=== PATIENT | female | born 1945 | race Caucasian/White ===

== ENCOUNTER 2024-12-16 09:18 | Inpatient (IN) ==
--- NOTE | 2024-12-16 09:49 | Emergency Department Note ---
ED Provider Note History of Present Illness Chief Complaint: Vomiting Stated Complaint: VOMITING Time Seen by Provider: 12/16/24 09:30 79-year-old female who presents to the emergency department with her (who also provides history) for evaluation of nausea, vomiting and inability to tolerate any food or drinks for the past 2 days. The patient reports that she felt well earlier on Thursday, and was playing with her granddaughter. By that afternoon is when symptoms developed. She did feel little bit better yesterday, but still did not have relief of symptoms. The patient denies any prior GI history, or history of abdominal surgeries. She has checked her temperature at home and has remained afebrile. She rates her discomfort a 10 out of 10. Home Medications Medication Instructions Recorded Confirmed Type levothyroxine 88 mcg tablet 88 mcg PO DAILY 12/16/24 12/16/24 History (Synthroid) simvastatin 20 mg tablet 20 mg PO DAILY 12/16/24 12/16/24 History Allergies Allergy/AdvReac Type Severity Reaction Status Date / Time No Known Allergies Allergy Unverified 08/11/17 09:36 Past Med/Surg History Problem List (Updated 12/16/24 @ 15:10 by Swapnil Hung) Acute hypokalemia (Acute) Abdominal wall hernia (Acute) Hypokalemia Dyslipidemia Hypothyroidism Gastric out let obstruction (Acute) Medical History Fecal impaction Status post right knee 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 Breast cancer (04/04/14) "Abnormal right breast mammogram Status post right breast needle localization excisional biopsy 04/04/2014 Estrogen receptor positive, progesterone receptor positive, HER-2/kobi negative Status post sentinel lymph node biopsy 05/02/2014 Stage [id number] Oncotype DX score of 19 Status post completion of radiation therapy utilizing accelerated partial breast treatment completed 07/07/2014 received 3850 cGy" Surgical History History of right knee joint replacement Social History Smoking Status: Current every day smoker Tobacco Type: Cigarettes marital status: current occupational status: retired Feels Safe at Home: Yes Physical Exam Vital Signs Vital Signs - 24 hr 12/16/24 09:25 12/16/24 09:38 12/16/24 10:09 Temperature 36.7 C Temperature Source Oral Pulse Rate 78 69 Respiratory Rate 20 17 Respiratory Effort / Characteristics Non-Labored Spontaneous Respiratory Depth Normal Blood Pressure 150/78 H 146/78 H Blood Pressure Mean 102 100 Pulse Oximetry 95 93 99 Oxygen Delivery Method Room Air Room Air Oxygen Flow Rate Sepsis Recent Fever Within 48 Hours No Sepsis New/Unexplained Change in Mental Status N/A Sepsis Action Taken by Nursing No Action Required Oxygen Flow Rate - Titration Pulse Oximetry Post Tiitration 12/16/24 10:15 12/16/24 10:17 12/16/24 10:30 Temperature Temperature Source Pulse Rate 70 Respiratory Rate Respiratory Effort / Characteristics Respiratory Depth Blood Pressure 157/83 H Blood Pressure Mean 112 Pulse Oximetry 85 L Oxygen Delivery Method Room Air Nasal Cannula Oxygen Flow Rate 0 Sepsis Recent Fever Within 48 Hours Sepsis New/Unexplained Change in Mental Status Sepsis Action Taken by Nursing Oxygen Flow Rate - Titration 3 Pulse Oximetry Post Tiitration 96 12/16/24 11:39 12/16/24 12:01 Temperature Temperature Source Pulse Rate 64 75 Respiratory Rate 14 17 Respiratory Effort / Characteristics Respiratory Depth Blood Pressure 111/85 124/87 Blood Pressure Mean 93 97 Pulse Oximetry 96 96 Oxygen Delivery Method Oxygen Flow Rate Sepsis Recent Fever Within 48 Hours Sepsis New/Unexplained Change in Mental Status Sepsis Action Taken by Nursing Oxygen Flow Rate - Titration Pulse Oximetry Post Tiitration CONSTITUTIONAL: Healthy and well nourished. Patient appears in moderate distress. HEENT: Mucous membranes are dry. No scleral icterus or conjunctival injection/pallor. RESPIRATORY: Clear to auscultation bilaterally with no wheezing, crackles, rhonchi or stridor. CARDIOVASCULAR: Regular rate and rhythm with no murmurs, rubs or gallops. GASTROINTESTINAL: Bowel sounds silent in all quadrants. Abdomen is protuberant and generally tender to palpation without any focal findings. Negative CVA tenderness. MUSCULOSKELETAL: Full range of motion of all joints without discomfort. INTEGUMENTARY: No rash or other significant dermatologic conditions noted. HEMATOLOGIC: No ecchymosis or petechiae. PSYCHIATRIC: Flat affect. NEUROLOGIC: No focal neurologic deficits noted. Course Course Patient history and physical exam were performed. Nursing notes were reviewed. Vital signs were reviewed. IV access was established, and labs were ordered and drawn. The patient was hydrated with a liter normal saline, and administered IV Zofran, Tylenol and a small dose of IV morphine. An ECG was performed, showing a right bundle branch block without any obvious ST elevations. Patient does have inverted T waves in anterior leads when compared to prior ECG dated 06/27/2015. The patient was placed on air sampling and monitoring while in the emergency department. Portable chest x-ray was normal, and did not show any subdiaphragmatic air. Review of labs showed relatively normal CBC. The patient is hypokalemic with a potassium of 3.1. Fattening is normal, with an anion gap of 13. Glucose is also elevated at 144, with a calcium of 10.5. LFTs are normal. Lipase is mildly elevated as well. Troponin is normal, as is a lactate level. CT with IV contrast of the abdomen and pelvis shows a large supraumbilical midline hernia containing parts of the stomach and transverse colon. The hernia appears to be causing gastric outlet obstruction, as concurred by the radiologist. Findings were discussed with the patient. I then discussed the case further with general surgery, who recommended NG tube placement, application of ice to the abdominal wall, and hospitalist consultation. They indicated that they would evaluate the patient as well. The case was then further discussed with the [facility] hospitalist service, who agreed to admission. Please see hospitalist and surgical dictations for further treatment and final disposition. The patient did report adequate pain control while under my care. The patient did have a brief episode of hypoxia after administering her IV morphine, therefore was placed on O2 via nasal cannula. She maintained her O2 saturations throughout the remainder of her ED evaluation. The case was also discussed with Dr. Vergara, ED attending physician, who agrees with workup and admission planning. Administered Medications Discontinued Medications Benzocaine/Butamben/Tetracaine HCl (Benzocaine/Tetracain/Butam 50 Appln/5 Gm Can) Confirm Administered Dose 50 appln EXT .STK-MED ONE Stop: 12/16/24 13:12 Last Admin: 12/16/24 13:34 Dose: 2 appln Documented By: PRISCILLA Sodium Chloride (Nss) 1,000 mls @ 999 mls/hr IV .Q1H1M STA Stop: 12/16/24 10:38 Last Infusion: 12/16/24 14:33 Dose: Infused Documented By: Admin: 12/16/24 09:55 Dose: 999 mls/hr Documented By: PRISCILLA Acetaminophen (Ofirmev) 1,000 mg in 100 mls @ 400 mls/hr IV NOW STA Stop: 12/16/24 09:52 Last Infusion: 12/16/24 11:30 Dose: Infused Documented By: valente Admin: 12/16/24 10:01 Dose: 400 mls/hr Documented By: PRISCILLA Potassium Chloride (K Parvez / Wtr) 10 meq in 100 mls @ 100 mls/hr IV Q1H NEELA Stop: 12/16/24 16:44 Last Admin: 12/16/24 15:58 Dose: 100 mls/hr Documented By: Infusion: 12/16/24 14:34 Dose: Infused Documented By: Admin: 12/16/24 13:34 Dose: 100 mls/hr Documented By: PRISCILLA Pantoprazole Sodium (Protonix) 40 mg in 10 mls @ 5 mls/min IV NOW ONE Stop: 12/16/24 12:56 Last Admin: 12/16/24 13:33 Dose: 5 mls/min Documented By: PRISCILLA Ioversol (Optiray 320 100ml) 94 ml IV ONCE ONE Stop: 12/16/24 10:41 Last Admin: 12/16/24 10:40 Dose: 94 ml Documented By: KENNETH Morphine Sulfate (Morphine Sulfate 2 Mg/Ml Carp) 2 mg IV NOW STA Stop: 12/16/24 09:39 Last Admin: 12/16/24 09:55 Dose: 2 mg Documented By: PRISCILLA Morphine Sulfate (Morphine Sulfate 4 Mg/Ml 1 Ml Carp\\Vial) 3 mg IV NOW STA Stop: 12/16/24 12:56 Last Admin: 12/16/24 13:33 Dose: 3 mg Documented By: PRISCILLA Ondansetron HCl (Ondansetron Inj 2 Mg/Ml 2 Ml Vial) 4 mg IV NOW STA Stop: 12/16/24 09:39 Last Admin: 12/16/24 09:55 Dose: 4 mg Documented By: PRISCILLA Medical Decision Making Medical Records Attestation: I reviewed the patient's medical records. Home Medications was personally reviewed by me Laboratory Data Attestation: I reviewed the patient's lab results. 12/16/24 09:50 12/16/24 09:50 Lab Results 12/16/24 12/16/24 Range/Units 09:50 12:21 WBC 5.63 (4.8-10.8) K/ul RBC 4.74 (4.20-5.40) M/uL Hgb 15.5 (12.0-16.0) g/dl Hct 43.8 (37.0-47.0) % MCV 92.4 (80.0-100.0) fL MCH 32.7 (25.0-34.0) pg MCHC 35.4 (32.0-36.0) g/dL RDW Std Deviation 46.0 (36.4-46.3) fL RDW Coeff of Karine 13.4 (11.5-14.5) % Plt Count 174 (130-400) K/uL MPV 9.9 (9.4-12.4) fL Immature Gran % (Auto) 0.4 % Neut % (Auto) 80.8 % Lymph % (Auto) 11.0 % Arthur % (Auto) 7.8 % Eos % (Auto) 0.0 % Baso % (Auto) 0.0 % Neut # (Auto) 4.55 (1.40-6.50) K/uL Lymph # (Auto) 0.62 L (1.20-3.40) K/uL Arthur # (Auto) 0.44 (0.11-0.59) K/uL Eos # (Auto) 0.00 (0.00-0.50) K/uL Baso # (Auto) 0.00 (0.00-0.20) K/uL Immature Gran # (Auto) 0.02 (0.01-0.20) K/uL Sodium 139 (136-145) mmol/L Potassium 3.1 L (3.5-5.1) mmol/L Chloride 90 L (98-107) mmol/L Carbon Dioxide 36 H (21-32) mmol/L Anion Gap 13 H (3-11) BUN 28 H (6-23) mg/dl Creatinine 0.93 (0.6-1.2) mg/dl Est Cr Clr Drug Dosing Not Reportable eGFR 62.13 BUN/Creatinine Ratio 30.1 H (10-20) Glucose 144 H (70-99(Fasting)) mg/dl Lactate 1.5 (0.4-2.0) mmol/L Calcium 10.5 H (8.6-10.3) mg/dl Phosphorus 4.2 (2.5-4.9) mg/dl Magnesium 1.7 (1.7-2.4) mg/dl Total Bilirubin 0.8 (0.2-1.0) mg/dl AST 28 (13-39) U/L ALT 19 (7-52) U/L Alkaline Phosphatase 102 (34-104) U/L Troponin I High Sens 11.0 (0-14) pg/ml Total Protein 8.5 H (6.0-8.3) gm/dl Albumin 4.2 (3.4-5.0) gm/dl Globulin 4.3 H (2.5-4.0) gm/dl Albumin/Globulin Ratio 1.0 (0.9-2) Lipase 122 H (11-82) U/L Imaging Data Attestation: I personally reviewed and interpreted this imaging study as follows: My Impression: My interpretation of a CT with IV contrast of the abdomen and pelvis shows a large supraumbilical midline hernia containing parts of the stomach and transverse colon. Radiologist indicates that this likely causes a gastric outlet obstruction. No abdominal free air is noted. Radiologist report was otherwise reviewed with concurrence. Radiologist's Impression: Abdomen/Pelvis CT 12/16/24 09:[address] WITH IV CONTRAST CT DOSE: 1302.75 mGy.cm HISTORY: Acute generalized abdominal pain with nausea and vomiting Abd pain, N/V TECHNIQUE: Multiaxial CT images of the abdomen and pelvis were performed following the IV administration of 94 cc of Optiray, A dose lowering technique was utilized adhering to the principles of ALARA. COMPARISON STUDY: None. FINDINGS: Cardiomegaly with coronary artery calcifications. Mild bibasilar atelectasis. No pneumatosis or pneumoperitoneum. Unremarkable spleen, moderately trophic pancreas and adrenal glands. Cholecystectomy with likely postsurgical biliary ductal dilation. Unremarkable liver with patency of the hepatic and portal veins. Kidneys are within normal limits. Unremarkable urinary bladder. Heterogeneous uterus. Extensive atherosclerosis of the aorta and branch vessels. Infrarenal abdominal aortic aneurysm measures 3.9 x 3.1 cm. No lymphadenopathy. There is wall thickening of the distal esophagus and gastroesophageal junction on image 72 series 3. Distended air and fluid-filled stomach with narrowing/obstruction level of the distal stomach/gastroduodenal junction, image 160 series 3 secondary to narrowing at the neck of a large midline supraumbilical hernia which demonstrates opening of 4.6 x 5.0 cm and contains stomach, mesenteric inflammatory stranding, ascites and transverse colon. The colon is also narrowed without large bowel obstruction at this time. Colonic diverticulosis without acute diverticulitis. Surgical clips within the right lower quadrant abdomen suggestive of prior appendectomy. No acute fracture. IMPRESSION: 1. Large midline supraumbilical hernia contains portions of the stomach and transverse colon. 2. Narrowing at the gastroduodenal junction from the hernia neck causes gastric outlet obstruction. Surgical consultation is needed. 3. Additional nonspecific wall thickening of the distal stomach and gastroesophageal junction. Attention at follow-up recommended. 4. Incidental findings as above include aneurysmal dilation of the infrarenal abdominal aorta measuring 3.9 cm. ACT 112: Negative or not required by law. The above report was generated using voice recognition software. It may contain grammatical, syntax or spelling errors. Electronically signed by: Sergei Benson M.D. 12/16/2024 11:27 AM Chest X-Ray 12/16/24 09:49 XR chest 1V portable CLINICAL HISTORY: Abd pain, N/V COMPARISON STUDY: None FINDINGS: Heart size and pulmonary vasculature are normal. No consolidation or pleural effusion. No pneumothorax. IMPRESSION: No acute findings. ACT 112: Negative or not required by law. Electronically signed by: Biju García M.D. 12/16/2024 10:07 AM ECG Data Attestation: I personally reviewed and interpreted this ECG as follows: Indication: + abdominal pain, + nausea and + vomiting Rate (beats per minute): 70 Rhythm: + normal sinus ECG Intervals/blocks: + Right Bundle branch block ECG Ash: + Right axis deviation ECG ST segments: + T-wave inversions (Anterior) Comparison ECG Date: from () Change: the following changes noted (T wave inversions in anterior leads) MDM Narrative Cardiac monitoring: An order was placed for continuous cardiac monitoring. The monitor shows a rate of 70 bpm with a normal sinus rhythm. 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 See ED Course section for further details of today's visit. Patient presents with complaint of 2-day history of severe upper abdominal pain with nausea and vomiting. The patient has been unable to tolerate any food or fluid intake. Imaging today shows a large supraumbilical midline hernia containing a portion of the stomach and transverse colon, causing a gastric outlet obstruction. Patient does have hypokalemia on labs, otherwise no elevated white count, evidence for acute kidney injury or elevated lactate level. She has a mildly elevated lipase as well. The case was discussed with general surgery, as well as the hospitalist service, who also admit and observe the patient. Please see their dictation for further treatment and final disposition. The patient did have adequate pain and nausea control while under my care in the emergency department. The case was also discussed with Dr. Vergara, ED attending physician, who agrees with workup and admission planning. Impression Abdominal wall hernia, Gastric out let obstruction, Acute hypokalemia Discharge Plan Visit Data Chief Complaint: Vomiting Stated Complaint: VOMITING ED Provider: Robyn Vergara ED Midlevel Provider: Swapnil Hung Discharge Problem: Abdominal wall hernia, Gastric out let obstruction, Acute hypokalemia Patient Disposition: Admitted As Inpatient Condition: Fair Discharge Instructions Interventions: ED Discharge Assessment Last Done: 12/16/24 14:44 ED DC CONDITION Conditon at Discharge Condition at Discharge: Fair
--- NOTE | 2024-12-16 09:49 | Emergency Department Note ---
ED Visit Note I was consulted by the Advanced Practice Provider, Dougie Hung PA-C. I performed a substantive portion of the visit. This includes aspects of: History: Patient is an 79-year-old female presenting with nausea and vomiting for the last 2 days. She has been unable to tolerate any oral intake. Denies any history of abdominal surgeries. Patient was feeling generally weak 3 days ago while playing with her granddaughter. She currently is complaining of abdominal discomfort that she rates a 10 out of 10. MDM: Laboratory workup in the emergency department showed a normal white blood cell count, slight hypokalemia at 3.1, elevated anion gap at 13. Normal lactate. CT abdomen/pelvis without IV contrast showed large midline supraumbilical hernia containing portions of the stomach and transverse colon. Noted to have narrowing of the gastroduodenal junction from the hernia causing gastric outlet obstruction. General surgery consulted. Patient to be admitted to medicine service with surgery consulting. .
[2024-12-16] MEDS: MoRPHine SULFATE 2 MG/ML CARP IV STA (09:55)
[2024-12-16] MEDS: SODIUM CHLORIDE 0.9% 1,000 ML IV STA (09:55)
[2024-12-16] MEDS: ONDANSETRON INJ 2 MG/ML 2 ML VIAL IV STA (09:55)
[2024-12-16] MEDS: ACETAMINOPHEN 1,000 MG/100 ML VIAL IV STA (10:01)
[2024-12-16 10:08] LABS: Hematocrit (blood only) 43.8 % (37.0-47.0); Hemoglobin 15.5 g/dl (12.0-16.0); Immature Granulocytes # (auto) 0.02 K/uL (0.01-0.20); Immature Granulocytes % (auto) 0.4 %; Mean Corpuscular Hemoglobin 32.7 pg (25.0-34.0); Mean Corpuscular Volume 92.4 fL (80.0-100.0); Platelet Count 174 K/uL (130-400); RDW Standard Deviation 46.0 fL (36.4-46.3); Red Blood Count 4.74 M/uL (4.20-5.40); White Blood Count 5.63 K/ul (4.8-10.8)
--- NOTE | 2024-12-16 10:08 | XRay Report ---
XR chest 1V portable CLINICAL HISTORY: Abd pain, N/V COMPARISON STUDY: None FINDINGS: Heart size and pulmonary vasculature are normal. No consolidation or pleural effusion. No p neumothorax. IMPRESSION: No acute findings. ACT 112: Negative or not required by law. Electronically signed by: Biju García M.D. 12/16/2024 10:07 AM
[2024-12-16 10:26] LABS: Alanine Aminotransferase 19 U/L (7-52); Albumin Globulin Ratio 1.0 (0.9-2); Albumin Level 4.2 gm/dl (3.4-5.0); Alkaline Phosphatase 102 U/L (34-104); Anion Gap 13 (3-11); Bilirubin,Total 0.8 mg/dl (0.2-1.0); Blood Urea Nitrogen 28 mg/dl (6-23); Calcium 10.5 mg/dl (8.6-10.3); Carbon Dioxide 36 mmol/L (21-32); Chloride 90 mmol/L (98-107); Globulin 4.3 gm/dl (2.5-4.0); Glucose 144 mg/dl (70-99(Fasting)); Lipase 122 U/L (11-82); Potassium 3.1 mmol/L (3.5-5.1); Sodium 139 mmol/L (136-145); Total Protein 8.5 gm/dl (6.0-8.3)
[2024-12-16] MEDS: OPTIRAY 320 100ml IV ONE (10:40)
--- NOTE | 2024-12-16 11:29 | CT Scan Report ---
ABDOMEN AND PELVIS CT WITH IV CONTRAST CT DOSE: 1302.75 mGy.cm HISTORY: Acute generalized abdominal pain with nausea and vomiting Abd pain, N/V TECHNIQUE: Multiaxial CT images of the abdomen and pelvis were performed following the IV administrat ion of 94 cc of Optiray, A dose lowering technique was utilized adhering to the principles of ALARA. COMPARISON STUDY: None. FINDINGS: Cardiomegaly with coronary artery calcifications. Mild bibasilar atelectasis. No pneumatosi s or pneumoperitoneum. Unremarkable spleen, moderately trophic pancreas and adrenal glands. Cholecystectomy with likely post surgical biliary ductal dilation. Unremarkable liver with patency of the hepatic and portal veins. Ki dneys are within normal limits. Unremarkable urinary bladder. Heterogeneous uterus. Extensive atheros clerosis of the aorta and branch vessels. Infrarenal abdominal aortic aneurysm measures 3.9 x 3.1 cm. No lymphadenopathy. There is wall thickening of the distal esophagus and gastroesophageal junction on image 72 series 3. Distended air and fluid-filled stomach with narrowing/obstruction level of the distal stomach/gastrod uodenal junction, image 160 series 3 secondary to narrowing at the neck of a large midline supraumbil ical hernia which demonstrates opening of 4.6 x 5.0 cm and contains stomach, mesenteric inflammatory stranding, ascites and transverse colon. The colon is also narrowed without large bowel obstruction a t this time. Colonic diverticulosis without acute diverticulitis. Surgical clips within the right low er quadrant abdomen suggestive of prior appendectomy. No acute fracture. IMPRESSION: 1. Large midline supraumbilical hernia contains portions of the stomach and transverse colon. 2. Narrowing at the gastroduodenal junction from the hernia neck causes gastric outlet obstruction. S urgical consultation is needed. 3. Additional nonspecific wall thickening of the distal stomach and gastroesophageal junction. Attent ion at follow-up recommended. 4. Incidental findings as above include aneurysmal dilation of the infrarenal abdominal aorta measuri ng 3.9 cm. ACT 112: Negative or not required by law. The above report was generated using voice recognition software. It may contain grammatical, syntax o r spelling errors. Electronically signed by: Sergei Benson M.D. 12/16/2024 11:27 AM
--- NOTE | 2024-12-16 12:08 | Surgery Consultation ---
<Statement entered by Nirali Pastor, - 12/16/24 15:44> I have seen and examined this patient. NGT decompression has been initiated and her abdomen is much improved since 1L aspiration so far. The area is now soft, non-tender and the pt is now without abdominal pain. Admit with continued NGT decompression and surgery will follow up in the am. Date of Consultation December 16, 2024 Assessment & Plan (1) Gastric out let obstruction: The patient is an 79-year-old female who presented to the emergency department with complaints of abdominal pain, nausea, and vomiting for the last [address] imaging was obtained in the emergency department with findings of large midline supraumbilical hernia containing portions of the stomach and transverse colon with narrowing at the gastroduodenal junction causing gastric outlet obstruction. Patient was seen and evaluated at bedside this afternoon. Her vitals are stable and she is in no acute distress. The patient continues to have abdominal discomfort on exam and the large midline hernia is unable to be reduced. The patient will be admitted to the medical service and from a surgical perspective recommend the following: -Will plan to treat the patient conservatively for now. Will have an NGT placed to suction for bowel decompression. -Keep NPO , appropriate IV hydration, and pain control as needed -Also provide ice pack to the hernia area - Will discuss patient's case with attending surgeon, Dr. Pastor, in [facility] and surgical team will provide further recommendations as hospital course unfolds. History of Present Illness Reason for Consultation: Supraumbilical hernia containing stomach and colon causing gastric outlet obstruction History of Present Illness The patient is an 79-year-old female who presented to the emergency department with complaints of abdominal pain, nausea, and vomiting for the last 2 days. The patient states that she felt in her normal state of health and on Thursday afternoon while playing with her granddaughter her symptoms developed. She states yesterday her symptoms did seem to improve some and she felt a little better however her symptoms did not completely resolve which prompted her to come to the emergency department. She states the pain is located mostly in her lower/mid abdomen region where she has also noticed that particular area beco yvse more distended as well. The patient states she has not been able to keep much oral intake down since Thursday. Her last bowel movement was Thursday as well and has not had one since and denies passing gas. The patient was worked up in the emergency room and CT findings were concerning for a large midline supraumbilical hernia with portions of the stomach and transverse colon along with the hernia neck causing a gastric outlet obstruction and the surgical team was consulted for further evaluation. The patient was seen and evaluated this afternoon at bedside in the emergency department. She is resting comfortably, VSS, and is nontoxic appearing. The patient states she is still having some abdominal discomfort however most of the pain is with palpation. She is noted to have a large hernia to the midline of her abdomen that is not able to be reduced during my evaluation secondary to pain over the area. The patient states her only previous abdominal surgery was an open cholecystectomy years ago and she is up to date on her colonoscopies with her last being within the past 5 years. Allergies Allergy/AdvReac Type Severity Reaction Status Date / Time No Known Allergies Allergy Unverified 08/11/17 09:36 Home Medications Medication Instructions Recorded Confirmed Type levothyroxine 88 mcg tablet 88 mcg PO DAILY 12/16/24 12/16/24 History (Synthroid) simvastatin 20 mg tablet 20 mg PO DAILY 12/16/24 12/16/24 History Patient History Medical History Fecal impaction Status post right knee 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 Breast cancer (04/04/14) "Abnormal right breast mammogram Status post right breast needle localization excisional biopsy 04/04/2014 Estrogen receptor positive, progesterone receptor positive, HER-2/kobi negative Status post sentinel lymph node biopsy 05/02/2014 Stage [id number] Oncotype DX score of 19 Status post completion of radiation therapy utilizing accelerated partial breast treatment completed 07/07/2014 received 3850 cGy" Surgical History History of right knee joint replacement Social History Smoking Status: Current every day smoker Tobacco Type: Cigarettes marital status: current occupational status: retired Feels Safe at Home: Yes Review of Systems Constitutional: no fever, no chills and no weakness Respiratory: no cough and no chest congestion Cardiovascular: no chest pain, no palpitations and no syncope Gastrointestinal: + abdominal pain, + nausea and + vomitin g Genitourinary: no difficulty urinating, no urinary hesitancy and no hematuria Physical Exam Constitutional: WD/WN, vitals as above Respiratory: normal respiratory effort; no respiratory distress and no labored breathing Cardiovascular: Rate/Rhythm: regular rate Gastrointestinal (Abdomen): Abdomen soft, +distended, +large hernia appreciated in the mid/lower abdominal region with TTP and hernia is unable to be reduced Skin: no rashes, warm and dry Results & Data Vital Signs (Past 12 Hours) Vital Signs Temp Pulse Resp BP Pulse Ox O2 Del Method O2 Flow Rate 12/16/24 10:30 157/83 H 12/16/24 10:17 70 12/16/24 10:15 85 L Room Air, Nasal Cannula 0 12/16/24 10:09 69 17 146/78 H 99 12/16/24 09:38 93 Room Air 12/16/24 09:25 36.7 C 78 20 150/78 H 95 Room Air Diagnostic Findings ABDOMEN AND PELVIS CT WITH IV CONTRAST CT DOSE: 1302.75 mGy.cm HISTORY: Acute generalized abdominal pain with nausea and vomiting Abd pain, N/V TECHNIQUE: Multiaxial CT images of the abdomen and pelvis were performed following the IV administration of 94 cc of Optiray, A dose lowering technique was utilized adhering to the principles of ALARA. COMPARISON STUDY: None. FINDINGS: Cardiomegaly with coronary artery calcifications. Mild bibasilar atelectasis. No pneumatosis or pneumoperitoneum. Unremarkable spleen, moderately trophic pancreas and adrenal glands. Cholecystectomy with likely postsurgical biliary ductal dilation. Unremarkable liver with patency of the hepatic and portal veins. Kidneys are within normal limits. Unremarkable urinary bladder. Heterogeneous uterus. Extensive atherosclerosis of the aorta and branch vessels. Infrarenal abdominal aortic aneurysm measures 3.9 x 3.1 cm. No lymphadenopathy. There is wall thickening of the distal esophagus and gastroesophageal junction on image 72 series 3. Distended air and fluid-filled stomach with narrowing/obstruction level of the distal stomach/gastroduodenal junction, image 160 series 3 secondary to narrowing at the neck of a large midline supraumbilical hernia which demonstrates opening of 4.6 x 5.0 cm and contains stomach, mesenteric inflammatory stranding, ascites and transverse colon. The colon is also narrowed without large bowel obstruction at this time. Colonic diverticulosis without acute diverticulitis. Surgical clips within the right lower quadrant abdomen suggestive of prior appendectomy. No acute fracture. IMPRESSION: 1. Large midline supraumbilical hernia contains portions of the stomach and transverse colon. 2. Narrowing at the gastroduodenal junction from the hernia neck causes gastric outlet obstruction. Surgical consultation is needed. 3. Additional nonspecific wall thickening of the distal stomach and gastroesophageal junction. Attention at follow-up recommended. 4. Incidental findings as above include aneurysmal dilation of the infrarenal abdominal aorta measuring 3.9 cm. PG Care Time/CCT Total # of Minutes Spent Total Time Spent with Patient: Total time spent is greater than 50% in coordination of care (as documented) at patient's floor/unit and/or counseling patient: [place] [address] INT INP/OBS CARE 1/40MIN Patient Type New History Problem Focused Exam Problem Focused Medical Decision Making Straight Forward Diagnoses Gastric out let obstruction K31.1
[2024-12-16] MEDS ORDERED: PROMETHAZINE 12.5 MG/50.5 ML BAG IV PRN (12:42)
[2024-12-16] MEDS ORDERED: ACETAMINOPHEN 1,000 MG/100 ML VIAL IV PRN (12:43)
--- NOTE | 2024-12-16 12:48 | History & Physical Report ---
Date of Service December 16, 2024 Assessment & Plan (1) Gastric out let obstruction: Plan: Patient is a 79year old F with a past medical history of hypothyroidism, prediabetes, dyslipidemia, breast cancer presenting with nausea, vomiting and abdominal pain x 2 days. Symptoms began with abdominal pain and nausea, that led to cyclic vomiting. Unable to tolerate foods x 2 days. Only minimal oral fluids tolerated. History of gall bladder removal with no complications following surgery. Reportedly, abdominal distention started about a month ago without current symptoms. Associated symptom of headache. Denies fever, chills, weakness, cognitive changes, vision/hearing changes, chest pain, SOB, swelling, difficulty breathing, urinary concerns, diarrhea, joint swelling/pain, skin rashes, lesions, bleeding, bruising. Gastric outlet obstruction 2/2 supraumbilical hernia * Admit to Med Tele for further management * Intractable N/V with abdominal pain x 2 days; protuberant belly started ~1 month ago w/o other assoc symptoms; decreased po's x 2 days; last BM 2 days ago * CT abdomen/pelvis showed Large midline supraumbilical hernia contains portions of the stomach and transverse colon; Narrowing at the gastroduodenal junction from the hernia neck causes gastric outlet obstruction. * Lactate normal 1.5 * Surgery consulted in ED-> plan for conservative management with NGT decompression, anti-emetics, pain meds; possible surgery * NPO + IVF replacement w/ NSS + 20 meq KCL * Mag/Phos normal- will recheck with AM labs * Phenergan Q6H as needed-> watch QT prolonging agents * Pain management with Acetaminophen 1gm Q8H scheduled-> liver functioning stable * Morphine as needed- given in ED; required supplemental O2 * Trend labs #Hypokalemia * K+ 3.1 in ED-> replaced with K Parvez x 4 * Tele monitoring- EKG showing NSR with 70 bpm, Qtc 516 * Additional KCL w/ IVF; see above * Recheck BMP in AM #Dyslipidemia * Continue home statin tomorrow #Hypothyroidism * Resume levothyroxine tomorrow DVT Ppx: SCDs Code status: Full PCP: Dr. Roico Fajardo Dispo: Admit Patient seen in collaboration with Dr. Jacobo. Please see addendum.I spent a total of 60 minutes coordinating, documenting and providing care for this patient excluding time spent in the performance of separately billed services or time spent by another provider/QHP. (2) Hypokalemia: (3) Dyslipidemia: (4) Hypothyroidism: History of Present Illness Primary Care Provider: Rocio Fajardo MD Patient is a 79year old F with a past medical history of hypothyroidism, prediabetes, dyslipidemia, breast cancer presenting with nausea, vomiting and abdominal pain x 2 days. Symptoms began with abdominal pain and nausea, that led to cyclic vomiting. Unable to tolerate foods x 2 days. Only minimal oral fluids tolerated. History of gall bladder removal with no complications following surgery. Reportedly, abdominal distention started about a month ago without current symptoms. Associated symptom of headache. Denies fever, chills, weakness, cognitive changes, vision/hearing changes, chest pain, SOB, swelling, difficulty breathing, urinary concerns, diarrhea, joint swelling/pain, skin rashes, lesions, bleeding, bruising. In the emergency department, patient was hemodynamically stable with no leukocytosis or evidence of sepsis. Lipase elevated [address] abdomen/pelvis showed Large midline supraumbilical hernia contains portions of the stomach and transverse colon; Narrowing at the gastroduodenal junction from the hernia neck causes gastric outlet obstruction. Patient reporting nausea in the ED w/o vomiting. PPI and Zofran given x 1 with some relief. Surgery consulted in ED with plan for conservative measures via NGT gastric decompression, NPO, fluids for now. Surgery attempted manual reduction at bedside. Possible surgical intervention needed if conservative measures unsuccessful. Hypokalemia noted on lab workup with K+ 3.1. EKG showing NSR with 70 bpm, Qtc 51 6. K Parvez x 4 ordered and started in ED. Chest Xray without acute findings. History obtained primarily from the patient and via hospitalization record. The patient's family was at the bedside and assisted with history of present illness. External chart review obtained from [facility]. Allergies Allergy/AdvReac Type Severity Reaction Status Date / Time No Known Allergies Allergy Unverified 08/11/17 09:36 Home Medications Medication Instructions Recorded Confirmed Type levothyroxine 88 mcg tablet 88 mcg PO DAILY 12/16/24 12/16/24 History (Synthroid) simvastatin 20 mg tablet 20 mg PO DAILY 12/16/24 12/16/24 History Past Med/Surg History Problem List (Updated 12/16/24 @ 13:27 by SANTINO Alarcon) Hypokalemia Dyslipidemia Hypothyroidism Gastric out let obstruction Medical History Fecal impaction Status post right knee 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 Breast cancer (04/04/14) "Abnormal right breast mammogram Status post right breast needle localization excisional biopsy 04/04/2014 Estrogen receptor positive, progesterone receptor positive, HER-2/kobi negative Status post sentinel lymph node biopsy 05/02/2014 Stage [id number] Oncotype DX score of 19 Status post completion of radiation therapy utilizing accelerated partial breast treatment completed 07/07/2014 received 3850 cGy" Surgical History History of right knee joint replacement Social History Smoking Status: Current every day smoker Tobacco Type: Cigarettes marital status: current occupational status: retired Feels Safe at Home: Yes Review of Systems Review of Systems: All systems reviewed & are unremarkable except as noted in HPI & below Physical Exam Physical Exam: VITALS: Reviewed. WEIGHT/BMI reviewed. GEN: Healthy appearing, well-developed, NAD. PSYCH: Good Judgment. AOx3. Normal memory, mood, and affect. HEENT -Head: NC/AT; -Eyes: PERRL, EOMI. No discharge or redn ess; -Ears: External ears are normal. -Nose: Normal nares. -Mouth and throat: Dry mucous membranes. Normal gums, mucosa, palate,. Good dentition. NECK: Supple, with no masses. CV: RRR, no m/r/g. BLE nonpitting edema LUNGS: CTAB, no w/r/c. ABD: Protuberant, tender, hypoactive bowel sounds : N/A SKIN: Warm, well perfused. No skin rashes or abnormal lesions. MSK: No deformities, Normal gait. EXT: No clubbing, cyanosis, or edema. NEURO: CN II-XII grossly intact. No focal deficits. Results & Data Results & Data Vital Signs (Past 12 Hours) Vital Signs Temp Pulse Resp BP Pulse Ox O2 Del Method O2 Flow Rate 12/16/24 12:01 75 17 124/87 96 12/16/24 11:39 64 14 111/85 96 12/16/24 10:30 157/83 H 12/16/24 10:17 70 12/16/24 10:15 85 L Room Air, Nasal Cannula 0 12/16/24 10:09 69 17 146/78 H 99 12/16/24 09:38 93 Room Air 12/16/24 09:25 36.7 C 78 20 150/78 H 95 Room Air Laboratory Results Short CBC 12/16/24 Range/Units 09:50 WBC 5.63 (4.8-10.8) K/ul Hgb 15.5 (12.0-16.0) g/dl Hct 43.8 (37.0-47.0) % Plt Count 174 (130-400) K/uL BMP 12/16/24 09:50 Sodium 139 Potassium 3.1 L Chloride 90 L Carbon Dioxide 36 H BUN 28 H Creatinine 0.93 Glucose 144 H Calcium 10.5 H Liver Function 12/16/24 Range/Units 09:50 Total Bilirubin 0.8 (0.2-1.0) mg/dl AST 28 (13-39) U/L ALT 19 (7-52) U/L Alkaline Phosphatase 102 (34-104) U/L Albumin 4.2 (3.4-5.0) gm/dl Diagnostic Findings Abdomen/Pelvis CT 12/16/24 09:[address] WITH IV CONTRAST CT DOSE: 1302.75 mGy.cm HISTORY: Acute generalized abdominal pain with nausea and vomiting Abd pain, N/V TECHNIQUE: Multiaxial CT images of the abdomen and pelvis were performed following the IV administration of 94 cc of Optiray, A dose lowering technique was utilized adhering to the principles of ALARA. COMPARISON STUDY: None. FINDINGS: Cardiomegaly with coronary artery calcifications. Mild bibasilar atelectasis. No pneumatosis or pneumoperitoneum. Unremarkable spleen, moderately trophic pancreas and adrenal glands. Cholecystectomy with likely postsurgical biliary ductal dilation. Unremarkable liver with patency of the hepatic and portal veins. Kidneys are within normal limits. Unremarkable urinary bladder. Heterogeneous uterus. Extensive athero sclerosis of the aorta and branch vessels. Infrarenal abdominal aortic aneurysm measures 3.9 x 3.1 cm. No lymphadenopathy. There is wall thickening of the distal esophagus and gastroesophageal junction on image 72 series 3. Distended air and fluid-filled stomach with narrowing/obstruction level of the distal stomach/gastroduodenal junction, image 160 series 3 secondary to narrowing at the neck of a large midline supraumbilical hernia which demonstrates opening of 4.6 x 5.0 cm and contains stomach, mesenteric inflammatory stranding, ascites and transverse colon. The colon is also narrowed without large bowel obstruction at this time. Colonic diverticulosis without acute diverticulitis. Surgical clips within the right lower quadrant abdomen suggestive of prior appendectomy. No acute fracture. IMPRESSION: 1. Large midline supraumbilical hernia contains portions of the stomach and transverse colon. 2. Narrowing at the gastroduodenal junction from the hernia neck causes gastric outlet obstruction. Surgical consultation is needed. 3. Additional nonspecific wall thickening of the distal stomach and gastroesophageal junction. Attention at follow-up recommended. 4. Incidental findings as above include aneurysmal dilation of the infrarenal abdominal aorta measuring 3.9 cm. ACT 112: Negative or not required by law. The above report was generated using voice recognition software. It may contain grammatical, syntax or spelling errors. Electronically signed by: Sergei Benson M.D. 12/16/2024 11:27 AM Chest X-Ray 12/16/24 09:49 XR chest 1V portable CLINICAL HISTORY: Abd pain, N/V COMPARISON STUDY: None FINDINGS: Heart size and pulmonary vasculature are normal. No consolidation or pleural effusion. No pneumothorax. IMPRESSION: No acute findings. ACT 112: Negative or not required by law. Electronically signed by: Biju García M.D. 12/16/2024 10:07 AM Code Status & VTE Plan VTE Prophylaxis Plan VTE Prophylaxis will be ordered: Yes
[2024-12-16] MEDS ORDERED: MoRPHine SULFATE 4 MG/ML 1 ML CARP\\VIAL IV PRN (12:57)
--- NOTE | 2024-12-16 13:12 | Communication Note ---
Date of Service: December 16, 2024 Attending Addendum: Case reviewed with the advanced practitioner. I have personally performed a history and physical examination on the patient. I have reviewed the advanced practitioner's documentation on the date of service referenced in note, and I agree with, and take responsibility for the plan of care. please refer to her notes for full details patient seen and examined, records reviewed by myself as well on exam, patient seen resting in bed, not in distress reports pain seems to be returning, 8/10 with severe reflux nausea has resolved no flatus, last BM 2 days ago no chest pain, dyspnea, palpitations, dizziness no fever/chills no other symptoms VS noted and reviewed oriented x 3 , not in distress, speaks in sentences with no effort nor accessory muscle use normal rate, regular rhythm, no murmurs clear breath sounds bilaterally (+) large midline supraumbilical hernia, hypoactive bowel sounds, soft, mild tenderness no bipedal edema, erythema, warmth no neuro deficits all labs, imaging noted and reviewed ASSESSMENT AND PLAN> STOMACH AND BOWEL OBSTRUCTION, SUPRAUMBILICAL HERNIA currently hemodynamically stable lactate 1.5 WBC normal General surgery consulted- NG tube ordered, awaiting final recommendations by Dr. Kylah Ernst re: possible surgery no medical contraindication to proceed with surgical intervention if recommended patient moderate to high risk for perioperative cardiopulmonary complications due to age group Protonix IV BID, Tylenol 1g IV q8h, PRN IV Morphine HYPOKALEMIA 3.1 K rider x 4 ordered K also added to NSS check Mg and Ph other chronic medical condition: PreDM Current Daily Smoker History of Breast CA other diagnoses and plan of care as per advanced practitioner's notes I spent a total of 40 minutes coordinating, documenting, and providing care for this patient, excluding time spent in the performance of separately billed services or time spent by another provider/QHP. Piero Jacobo MD
[2024-12-16 13:26] LABS: Magnesium 1.7 mg/dl (1.7-2.4)
[2024-12-16] MEDS: MoRPHine SULFATE 4 MG/ML 1 ML CARP\\VIAL IV STA (13:33)
[2024-12-16] MEDS: PANTOprazole 40 MG/10 ML SYR IV ONE (13:33)
[2024-12-16] MEDS: POTASSIUM CHLORIDE / WTR 10 MEQ/100 ML PLCT IV SCH (13:34)
[2024-12-16] MEDS: BENZOCAINE/TETRACAIN/BUTAM 50 APPLN/5 GM CAN EXT ONE (13:34)
--- NOTE | 2024-12-16 14:22 | XRay Report ---
XR chest 1V portable CLINICAL HISTORY: NG tube COMPARISON STUDY: 12/16/2024 FINDINGS: Nasogastric tube tip is in the mid body of the stomach with the sidehole just beyond the GE junction. There is stable mild cardiomegaly without pulmonary vascular congestion. No consolidation or pleural effusion. No pneumothorax. IMPRESSION: Nasogastric tube as described. ACT 112: Negative or not required by law. Electronically signed by: Biju García M.D. 12/16/2024 2:21 PM
[2024-12-16] MEDS ORDERED: POLYETHYLENE (MIRALAX) 17 GM PACK PO PRN (15:25)
[2024-12-16] MEDS ORDERED: MELATONIN 3 MG TAB PO PRN (15:25)
[2024-12-16] MEDS ORDERED: Nursing to Pharmacy Communication SCH (17:45)
--- NOTE | 2024-12-16 18:49 | Electrocardiogram Report ---
Test Reason : Blood Pressure : */* mmHG Vent. Rate : 70 BPM Atrial Rate : 70 BPM P-R Int : 158 ms QRS Dur : 182 ms QT Int : 478 ms P-R-T Axes : 104 -25 37 degrees QTcB Int : 516 ms Normal sinus rhythm Right bundle branch block Abnormal ECG When compared with ECG of 27-Jun-2015 11:36, T wave inversion now evident in Anterior leads QT has lengthened Confirmed by Michael Godinez ([id number]) on 12/16/2024 6:49:30 PM Referred By: Rocio Fajardo Confirmed By: Michael Godinez
[2024-12-16] MEDS: PANTOprazole 40 MG/10 ML SYR IV SCH (19:38)
[2024-12-16] MEDS: NSS + 20MEQ KCL 20 MEQ/1,000 ML BAG IV SCH (21:27)
[2024-12-17 06:46] LABS: Hematocrit (blood only) 35.8 % (37.0-47.0); Hemoglobin 12.9 g/dl (12.0-16.0); Mean Corpuscular Hemoglobin 34.1 pg (25.0-34.0); Mean Corpuscular Volume 94.7 fL (80.0-100.0); Platelet Count 141 K/uL (130-400); RDW Standard Deviation 47.7 fL (36.4-46.3); Red Blood Count 3.78 M/uL (4.20-5.40); White Blood Count 6.07 K/ul (4.8-10.8)
[2024-12-17 07:27] LABS: Anion Gap 7.0 (3-11); Blood Urea Nitrogen 32.0 mg/dl (6-23); Calcium 9.0 mg/dl (8.6-10.3); Carbon Dioxide 36.0 mmol/L (21-32); Chloride 98.0 mmol/L (98-107); Creatinine Clr Calc Pharmacy 62.0 ml/min; Glucose 91.0 mg/dl (70-99(Fasting)); Magnesium 1.6 mg/dl (1.7-2.4); Potassium 3.4 mmol/L (3.5-5.1); Sodium 141.0 mmol/L (136-145)
[2024-12-17] MEDS: MAGNESIUM SULFATE / D5W 1 GM/100 ML BAG IV SCH (08:09)
[2024-12-17 08:42] LABS: Appearance Urine Clear (Clear); Bacteria Urine Automated 2+ (None Seen); Cast Urine Automated 0-2 /lpf (0-2); Glucose Urine UA Negative (Negative); WBC Urine Automated 0-5 /hpf (0-5)
--- NOTE | 2024-12-17 10:16 | Hospitalist Progress Note ---
Date of Service December 17, 2024 Assessment & Plan (1) Gastric out let obstruction: Plan: Patient is a 79year old F with a past medical history of hypothyroidism, prediabetes, dyslipidemia, breast cancer presenting with nausea, vomiting and abdominal pain x 2 days. Symptoms began with abdominal pain and nausea, that led to cyclic vomiting. Unable to tolerate foods x 2 days. Only minimal oral fluids tolerated. History of gall bladder removal with no complications following surgery. Reportedly, abdominal distention started about a month ago without current symptoms. Associated symptom of headache. Denies fever, chills, weakness, cognitive changes, vision/hearing changes, chest pain, SOB, swelling, difficulty breathing, urinary concerns, diarrhea, joint swelling/pain, skin rashes, lesions, bleeding, bruising. #Gastric outlet obstruction 2/2 supraumbilical hernia -CT abdomen/pelvis showed Large midline supraumbilical hernia contains portions of the stomach and transverse colon; Narrowing at the gastroduodenal junction from the hernia neck causes gastric outlet obstruction. -NG tube placed in ED -No BM. Not passing gas Plan -Remain NPO -NG tube per surgery -Appreciate surgery input -Continue IVF -Daily labs -Pain control #Hypokalemia -Hypomagnesemia -Replace and follow #Dyslipidemia -Hold statin while NPO #Hypothyroidism -Convert to IV synthroid while NPO and NG tube DVT Ppx: SCDs Code status: Full PCP: Dr. Rocio Fajardo Dispo: Admit I spent a total of 45 minutes coordinating, documenting, and providing care for this patient excluding time spent in the performance of separately billed services. This included personally reviewing all current laboratories and imaging studies, medical reconciliation, outpatient chart review and discussion with specialists (2) Hypokalemia: (3) Dyslipidemia: (4) Hypothyroidism: Admission and Anticipated Discharge Date Admission Date: December 16, 2024 Subjective Feeling much better today. does not like the NG tube. no other major complaints. no BM and not passing gas. Physical Exam Physical Exam: Vitals and labs reviewed General: Well appearing, NAD HEENT: EOMI, PERRLA Neck: Supple Cardiac: RRR no rubs gallops or murmurs Lungs: CTA no rhonchi wheezing or rales Abd: NG tube. S mild distention. no BS. NT : No ruelas MSK: Full ROM. No obvious deformities Ext: No Edema cyanosis Skin: Warm, Dry Neuro: AOx3 No focal deficits. Psych: Normal Mood Results & Data Results & Data Vital Signs (Past 12 Hours) Vital Signs Temp Pulse Pulse Resp BP Pulse Ox O2 Del Method 12/17/24 08:08 36.5 C 71 18 155/81 H 95 Nasal Cannula 12/17/24 07:38 63 12/17/24 03:42 36.3 C L 84 20 148/80 H 90 Nasal Cannula 12/17/24 00:26 36.8 C 86 20 132/68 92 Room Air O2 Flow Rate 12/17/24 08:08 2 12/17/24 07:38 12/17/24 03:42 2 12/17/24 00:26 Laboratory Results Abnormal lab results 12/16/24 12/17/24 12/17/24 Range/Units 09:50 06:22 08:25 RBC 3.78 L (4.20-5.40) M/uL Hct 35.8 L (37.0-47.0) % MCH 34.1 H (25.0-34.0) pg RDW Std Deviation 47.7 H (36.4-46.3) fL Potassium 3.1 L 3.4 L (3.5-5.1) mmol/L Chloride 90 L (98-107) mmol/L Carbon Dioxide 36 H 36 H (21-32) mmol/L Anion Gap 13 H (3-11) BUN 28 H 32 H (6-23) mg/dl BUN/Creatinine Ratio 30.1 H 41.6 H (10-20) Glucose 144 H (70-99(Fasting)) mg/dl Calcium 10.5 H (8.6-10.3) mg/dl Magnesium 1.6 L (1.7-2.4) mg/dl Total Protein 8.5 H (6.0-8.3) gm/dl Globulin 4.3 H (2.5-4.0) gm/dl Lipase 122 H (11-82) U/L Ur Specific [place] > 1.045 H (1.000-1.030) Urine Protein 1+ H (Negative) Urine Ketones 2+ H (Negative) Ur Leukocyte Esterase Trace H (Negative) Urine RBC (Auto) 3-5 H (0-2) /hpf U Epithel Cells (Auto) 3-5 H (0-2) /hpf Urine Bacteria (Auto) 2+ H (None Seen)
--- NOTE | 2024-12-17 11:23 | Surgery Progress Note ---
<Statement entered by Nirali Pastor, - 12/17/24 11:47> I have seen and examined this patient this am with the surgical PA. I agree with this plan Date of Service December 17, 2024 Assessment & Plan (1) Gastric out let obstruction: Plan: No acute events overnight. Denies passing flatus, denies N/V. NG tube in place with 300 cc of output since placement. Continue NG tube. Encouraged getting out of bed and sitting in chair with assistance. She does have open area in abdominal fold with possible fungal skin infection- Nystatin with gauze placement ordered. Patient seen and examine with Dr. Pastor. Dr. Pastor did discuss possible surgery while inpatient, but no plans for surgery over the weekend. Will need to further discuss pros and cons of surgery. Vikki is concerned about pain returning if she is discharged if hernia is not repaired surgically. Admission and Anticipated Discharge Date Admission Date: December 16, 2024 Subjective Vikki is resting in bed, feeling better than when she initially came in. NG tube in place. Denies N/V. Still not passing flatus. Physical Exam Constitutional: WD/WN, vitals as above Respiratory: normal respiratory effort; no respiratory distress and no labored breathing Cardiovascular: Rate/Rhythm: regular rate Gastrointestinal (Abdomen): Abdomen soft, +distended, +large hernia appreciated in the mid/lower abdominal region with TTP and hernia is unable to be reduced Open wound with possible yeast infection of skin near umbilicus/beneath abdominal fold/pannus Skin: no rashes, warm and dry Results & Data Vital Signs (Past 12 Hours) Vital Signs Temp Pulse Pulse Resp BP Pulse Ox O2 Del Method 12/17/24 08:08 36.5 C 71 18 155/81 H 95 Nasal Cannula 12/17/24 08:00 Nasal Cannula 12/17/24 07:38 63 12/17/24 03:42 36.3 C L 84 20 148/80 H 90 Nasal Cannula 12/17/24 00:26 36.8 C 86 20 132/68 92 Room Air O2 Flow Rate 12/17/24 08:08 2 12/17/24 08:00 2 12/17/24 07:38 12/17/24 03:42 2 12/17/24 00:26 PG Care Time/CCT Total # of Minutes Spent Total Time Spent with Patient: Total time spent is greater than 50% in coordination of care (as documented) at patient's floor/unit and/or counseling patient: Coding Level of Care Code 74486 SUB INP/OBS CARE 2/35MIN Diagnoses Gastric out let obstruction K31.1
[2024-12-17] MEDS: LEVOTHYROXINE SODIUM 44 MCG in SYRINGE 0 ML IV SCH (12:41)
[2024-12-17] MEDS: LEVOTHYROXINE SODIUM 88 MCG TABLET PO SCH (12:43)
[2024-12-17] MEDS: NYSTATIN OINT 15 GM TUBE EXT SCH (19:04)
[2024-12-17] MEDS: SIMVASTATIN 20 MG TAB PO SCH (19:10)
[2024-12-18] MEDS: METOPROLOL TARTRATE 1 MG/ML VIAL IV STA ×2 (02:54→20:47)
[2024-12-18] MEDS: POTASSIUM CHLORIDE / WTR 10 MEQ/100 ML PLCT IV SCH (02:55)
[2024-12-18] MEDS: PNEUMOCOCCAL VACCINE (PCV20) 20-VAL CONJ-DIP CRM/PF 0.5 ML SYR IM ONE (06:23)
[2024-12-18] MEDS: INFLUENZA VACC TS2025-26(65y+)/PF (IIV3) 0.5mL Syr IM ONE (06:25)
[2024-12-18 07:32] LABS: Hematocrit (blood only) 38.4 % (37.0-47.0); Hemoglobin 12.7 g/dl (12.0-16.0); Immature Granulocytes # (auto) 0.03 K/uL (0.01-0.20); Immature Granulocytes % (auto) 0.5 %; Mean Corpuscular Hemoglobin 32.4 pg (25.0-34.0); Mean Corpuscular Volume 98.0 fL (80.0-100.0); Platelet Count 127 K/uL (130-400); RDW Standard Deviation 51.5 fL (36.4-46.3); Red Blood Count 3.92 M/uL (4.20-5.40); White Blood Count 6.26 K/ul (4.8-10.8)
[2024-12-18 07:56] LABS: Anion Gap 8.0 (3-11); Blood Urea Nitrogen 31.0 mg/dl (6-23); Calcium 9.0 mg/dl (8.6-10.3); Carbon Dioxide 31.0 mmol/L (21-32); Chloride 103.0 mmol/L (98-107); Creatinine Clr Calc Pharmacy 74.8 ml/min; Glucose 77.0 mg/dl (70-99(Fasting)); Magnesium 1.9 mg/dl (1.7-2.4); Potassium 4.3 mmol/L (3.5-5.1); Sodium 142.0 mmol/L (136-145)
--- NOTE | 2024-12-18 11:08 | Surgery Progress Note ---
Date of Service December 18, 2024 Assessment & Plan (1) Abdominal wall hernia: (2) Yeast infection of the skin: (3) Gastric out let obstruction: Plan No acute events overnight. Is now passing flatus, denies N/V. NG tube in place. Encouraged getting out of bed and sitting in chair with assistance. Fungal infection involving the skin of the umbilicus due to moisture of skin to skin contact. Please keep a dry gauze over this area. Nystatin with gauze placement ordered. Adding Diflucan Will need to further discuss pros and cons of surgery. Vikki is concerned about pain returning if she is discharged if hernia is not repaired surgically. Unfortunately with her current yeast infection of the skin over what would be the surgical site and her obesity, she is not a good surgical candidate at this time unless she does not improve to be able to eat and drink without obstruc tion. A repair in this case would benefit from a mesh to be placed and that would not be able to be done in this environment. The other option would be a less optimal repair performing hernia reduction and closure without mesh and she will be a high risk for recurrence. In addition she is obese. Admission and Anticipated Discharge Date Admission Date: December 16, 2024 Subjective I have seen and examined this patient this am. She states she has started to pass gas. Denies nausea or abdominal pain Physical Exam Constitutional: + obese; not ill appearing, not in distr ess and not diaphoretic Respiratory: normal respiratory effort; no respiratory distress, no labored breathing and does not use accessory muscles Cardiovascular: Rate/Rhythm: regular rate; not tachycardic Gastrointestinal (Abdomen): NGT in place. Decreasing drainage Abdomen is TTP with attempts to reduce the hernia. Fluid shifts still felt with palpation. Yeast infection about the umbilicus Results & Data Vital Signs (Past 12 Hours) Vital Signs Temp Pulse Pulse Resp BP BP Pulse Ox 12/18/24 07:38 36.6 C 61 18 146/72 H 98 12/18/24 07:22 69 12/18/24 03:09 36.8 C 73 18 124/72 94 12/18/24 03:09 73 124/72 12/18/24 02:54 69 139/77 12/18/24 00:02 36.7 C 70 20 149/74 H 94 12/17/24 23:22 65 O2 Del Method O2 Flow Rate 12/18/24 07:38 Nasal Cannula 2 12/18/24 07:22 12/18/24 03:09 Nasal Cannula 2 12/18/24 03:09 12/18/24 02:54 12/18/24 00:02 Nasal Cannula 2 12/17/24 23:22 PG Care Time/CCT Total # of Minutes Spent Total Time Spent with Patient: Total time spent is greater than 50% in coordination of care (as documented) at patient's floor/unit and/or counseling patient: Coding Level of Care Code 95546 SUB INP/OBS CARE 04/09MIN Diagnoses Abdominal wall hernia K43.9 Yeast infection of the skin B37.2 Gastric out let obstruction K31.1
--- NOTE | 2024-12-18 11:10 | Hospitalist Progress Note ---
Date of Service December 18, 2024 Assessment & Plan (1) Gastric out let obstruction: Plan: Patient is a 79year old F with a past medical history of hypothyroidism, prediabetes, dyslipidemia, breast cancer presenting with nausea, vomiting and abdominal pain x 2 days. Symptoms began with abdominal pain and nausea, that led to cyclic vomiting. Unable to tolerate foods x 2 days. Only minimal oral fluids tolerated. History of gall bladder removal with no complications following surgery. Reportedly, abdominal distention started about a month ago without current symptoms. Associated symptom of headache. Denies fever, chills, weakness, cognitive changes, vision/hearing changes, chest pain, SOB, swelling, difficulty breathing, urinary concerns, diarrhea, joint swelling/pain, skin rashes, lesions, bleeding, bruising. #Gastric outlet obstruction 2/2 supraumbilical hernia -CT abdomen/pelvis showed Large midline supraumbilical hernia contains portions of the stomach and transverse colon; Narrowing at the gastroduodenal junction from the hernia neck causes gastric outlet obstruction. -NG tube placed in ED -No BM. Not passing gas Plan -Remain NPO -NG tube per surgery -Appreciate surgery input -Continue IVF -Daily labs -Pain control #Thrombocytopenia -Plts decreased from 174--->127 in two days -She is not on heparin based products due to need for possible surgery -Unclear etiology, ?? consumptive -No s/s DIC Plan -Follow plts closely -Should plts continue to decrease, will ask hematology to evaluate #Hypokalemia -Hypomagnesemia -Replace and follow #Dyslipidemia -Hold statin while NPO #Hypothyroidism -Convert to IV synthroid while NPO and NG tube DVT Ppx: SCDs Code status: Full PCP: Dr. Rocio Fajardo Dispo: Admit I spent a total of 47 minutes coordinating, documenting, and providing care for this patient excluding time spent in the performance of separately billed services. This included personally reviewing all current laboratories and imaging studies, medical reconciliation, outpatient chart review and discussion with specialists (2) Hypokalemia: (3) Dyslipidemia: (4) Hypothyroidism: Admission and Anticipated Discharge Date Admission Date: December 16, 2024 Subjective Vikki is resting in bed, feeling better than when she initially came in. NG tube in place. pain resolved. passing gas Physical Exam Physical Exam: Vitals and labs reviewed General: Well appearing, NAD HEENT: EOMI, PERRLA Neck: Supple Cardiac: RRR no rubs gallops or murmurs Lungs: CTA no rhonchi wheezing or rales Abd: NG tube. S mild distention. no BS. NT : No ruelas MSK: Full ROM. No obvious deformities Ext: No Edema cyanosis Skin: Warm, Dry Neuro: AOx3 No focal deficits. Psych: Normal Mood Results & Data Results & Data Vital Signs (Past 12 Hours) Vital Signs Temp Pulse Pulse Resp BP BP Pulse Ox 12/18/24 07:38 36.6 C 61 18 146/72 H 98 12/18/24 07:22 69 12/18/24 03:09 36.8 C 73 18 124/72 94 12/18/24 03:09 73 124/72 12/18/24 02:54 69 139/77 12/18/24 00:02 36.7 C 70 20 149/74 H 94 12/17/24 23:22 65 O2 Del Method O2 Flow Rate 12/18/24 07:38 Nasal Cannula 2 12/18/24 07:22 12/18/24 03:09 Nasal Cannula 2 12/18/24 03:09 12/18/24 02:54 12/18/24 00:02 Nasal Cannula 2 12/17/24 23:22 Laboratory Results Abnormal lab results 12/18/24 Range/Units 07:03 RBC 3.92 L (4.20-5.40) M/uL RDW Std Deviation 51.5 H (36.4-46.3) fL Plt Count 127 L (130-400) K/uL Lymph # (Auto) 0.79 L (1.20-3.40) K/uL [place] # (Auto) 0.78 H (0.11-0.59) K/uL BUN 31 H (6-23) mg/dl BUN/Creatinine Ratio 48.4 H (10-20)
[2024-12-18] MEDS: FLUCONAZOLE 50 MG TAB PO SCH (17:20)
--- NOTE | 2024-12-18 20:36 | Communication Note ---
Date of Service: December 18, 2024 Patient noted to be rapid A-fib. Heart rate 130s, SBP 140s Patient without complaints as per RN. AP New onset A-fib IV Lopressor followed by oral metoprolol for rate control TTE, Cardiology consult in a.m.
[2024-12-18] MEDS: MAGNESIUM SULFATE / D5W 1 GM/100 ML BAG IV ONE (20:58)
[2024-12-18] MEDS: METOPROLOL TARTRATE 25 MG TAB PO SCH (21:17)
--- NOTE | 2024-12-19 08:50 | Cardiology Consultation ---
Date of Consultation December 19, 2024 Assessment & Plan (1) Gastric out let obstruction: (2) Abdominal wall hernia: (3) Yeast infection of the skin: (4) New onset atrial fibrillation: (5) Hypokalemia: (6) Dyslipidemia: Plan Assessment: 79 year old female admitted with several days of nausea, vomiting, acute dehydration and hypokalemia in the setting of a gastric outset obstruction. Developed new onset Atrial fibrillation with RVR overnight. Cardiology has been consulted for further assessment and recommendations. Plan: 1. Gastric outlet obstruction 2. Abdominal wall hernia 3. Yeast infection of the skin -Patient is being followed closely by general surgery, initially managed from a conservative approach; however, review of surgery notes does make mention that they are considering pursuing surgical intervention. -Case complicated by yeast infection of the skin--continued management by general surgery and primary team to resolve skin infection before moving forward. 4. New onset atrial fibrillation 5. Hypokalemia -Likely precipitated by acute illness, dehydration and hypokalemia. -Episode lasted approx 3 hours per review of telemetry. Patient spontaneously converted to NSR at 2309 with no recurrence since -Discussed pathophysiology of atrial fibrillation and potential causes for her event -[id number] score 3. -Electrolyte imbalance has not been resolved. -Will discuss case with Dr. Angel with regards to initiating anticoagulation while hospitalized. If this would be pursued would likely need to utilize a heparin gtt as patient is slated for surgical intervention for her hernia. patient is aware that she is currently in sinus rhythm, but risk factors are present for thombus formation. -Continue with potassium supplementation as appropriate. Goal Serum K > 4.0. Serum Mag > 2.0 -Continue metoprolol tartrate as per current regimen. 6. dyslipidemia -Ok to continue Simvastatin if patient is taking oral medications. Case has been discussed with Dr. Angel. Further recommendations regarding plan of care as per his assessment. I spent a total of 50 minutes on the date of service in preparation, delivery, documentation of the care provided to the patient excluding any time spent in the performance of separately billed services. SANTINO Quintana [facility] Cardiology [facility] Supervising Physician Co-Signing Physician Notes Patient seen and examined. Past medical history, surgical history, social history and family history have been reviewed. The medical record and all the above studies have been reviewed. Case DW ELKE including management. New Onset Atrial Fibrillation with RVR -> NSR Gastric outset obstruction Electrolyte abnormality Preop cardiology evaluation 12/19/24 ECHO Interpretation Summary Left ventricular systolic function is normal. Left Ventricular Ejection Fraction = 55-60%. Diastolic dysfunction, Grade II (pseudonormalization pattern). There is mild mitral regurgitation. There is mild tricuspid regurgitation. Recommendations: correct and f/u electrolytes f/u renal function anticoagulation if no contraindications from surgery standpoint may start IV Heparin or Lovenox and hold prior to surgery and restart after surgery to transition to Eliquis patient has greater then 4 METS activity with no symptoms of angina and no prior significant cardiac history patient is cleared as low to intermediate risk from cardiac standpoint for ventral hernia surgery continue metoprolol keeping HR between 60 and 100 BPM and systolic BP between 100-140 mmHg avoid fluid overload periop telemetry monitoring History of Present Illness Reason for Consultation: AF Requesting Physician: [facility] Attending Physician: Andrea Rajput DO History of Present Illness HPI: patient is a 79 year old female with PMHx significant for hypothyroidism, prediabetes, dyslipidemia, breast cancer that presented to the ER with a 2 day history of nausea, vomiting and abdominal pain. General surgery was consulted s/t gastric outlet obstruction with a plan for conservative management with NGT decompression, antiemetics and pain medications. Surgery would be considered if no improvement. Cardiology has been consulted after patient developed A-fib with RVR overnight. EKG obtained at 2028 last evening shows A-fib with RVR, right BBB. Rate 127bpm Upon seeing patient today she is sitting up on the side of bed talking with her spouse via phone. She offers no acute complaints, but is generally uncomfortable and can't wait to be done with the NG tube. She states that general surgery did see her this morning and would like to consider surgical intervention; however, she has a yeast infection in the generalized area and they will need this reso lved prior to moving forward. patient denies any symptoms at the time of her A-fib episode and denies any prior knowledge of A-fib. She denies chest pain, pressure, palpitations, no shortness of breath, PND, pre-syncope, syncope or edema. Review of telemetry currently demonstrates SR rats in the 60's. Her A-fib onset was last night at 20:16 and she spontaneously converted at 23:09. Rates varied from 100-140bpm during the event. Order placed for repeat EKG since patient is now in sinus rhythm. Allergies Allergy/AdvReac Type Severity Reaction Status Date / Time No Known Allergies Allergy Unverified 08/11/17 09:36 Home Medications Medication Instructions Recorded Confirmed Type levothyroxine 88 mcg tablet 88 mcg PO DAILY 12/16/24 12/16/24 History (Synthroid) simvastatin 20 mg tablet 20 mg PO DAILY 12/16/24 12/16/24 History Patient History Medical History Fecal impaction Status post right knee 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 Breast cancer (04/04/14) "Abnormal right breast mammogram Status post right breast needle localization excisional biopsy 04/04/2014 Estrogen receptor positive, progesterone receptor positive, HER-2/kobi negative Status post sentinel lymph node biopsy 05/02/2014 Stage [id number] Oncotype DX score of 19 Status post completion of radiation therapy utilizing accelerated partial breast treatment completed 07/07/2014 received 3850 cGy" Surgical History History of right knee joint replacement Social History Smoking Status: Current every day smoker Tobacco Type: Cigarettes Cigarettes Per Day: 1/2 PPD; Second Hand Exposure: No; Do You Dip or Chew Tobacco: No; Hx Alcohol Use: No Hx Substance Use: No Preferred Language: Estonian Communication Ability: Effective Product Management Internship Required: No Beliefs That Will Affect Care: None marital status: Current Living Situation: Spouse Current Living Situation Comment: 1 story home current occupational status: retired Feels Safe at Home: Yes Assistive Devices: Cane, Denture - Upper and Glasses Review of Systems Review of Systems: All systems reviewed & are unremarkable except as noted in HPI & below Physical Exam Constitutional: well developed, well nourished and + overweight Neck: normal visual inspection and trachea midline Respiratory: normal respiratory effort and + cough (non productive); no respiratory distress and no labored breathing Auscultation: + diminished lung sounds (bilateral bases ); no crackles, no rales, no rhonchi and no wheezes Cardiovascular: Rate/Rhythm: regular rate and regular rhythm Heart Sounds: normal S1 and normal S2; no murmur Vessels: dorsalis pedis pulses present; no JVD Extremities: + edema (trace BLE ) Skin: + rash (yeast infection to pannus and lo wer abdominal region ) Psychiatric: A+Ox3, euthymic affect Results & Data Vital Signs (Past 12 Hours) Vital Signs Temp Pulse Pulse Resp BP BP Pulse Ox 12/19/24 07:40 36.8 C 60 18 164/97 H 92 12/19/24 04:01 36.8 C 63 20 134/72 97 12/19/24 03:59 36.8 C 63 20 134/72 97 12/19/24 00:23 36.7 C 109 H 20 115/76 91 12/18/24 21:45 124 H 12/18/24 21:14 114 H 105/64 12/18/24 21:02 122 H 117/64 12/18/24 20:47 132 H 144/80 H O2 Del Method O2 Flow Rate 12/19/24 07:40 Nasal Cannula 2 12/19/24 04:01 Nasal Cannula 2 12/19/24 03:59 Nasal Cannula 2 12/19/24 00:23 Nasal Cannula 2 12/18/24 21:45 12/18/24 21:14 12/18/24 21:02 12/18/24 20:47 Laboratory Results Coagulation 12/19/24 Range/Units 08:17 APTT 26 (21-31) Seconds CBC 12/19/24 Range/Units 08:17 WBC 6.62 (4.8-10.8) K/ul RBC 3.81 L (4.20-5.40) M/uL Hgb 12.4 (12.0-16.0) g/dl Hct 37.6 (37.0-47.0) % Plt Count 125 L (130-400) K/uL Neut # (Auto) 4.93 (1.40-6.50) K/uL Lymph # (Auto) 0.80 L (1.20-3.40) K/uL [place] # (Auto) 0.84 H (0.11-0.59) K/uL Eos # (Auto) 0.03 (0.00-0.50) K/uL Baso # (Auto) 0.01 (0.00-0.20) K/uL Comprehensive Metabolic Panel 12/19/24 Range/Units 08:17 Sodium 142 (136-145) mmol/L Potassium 4.4 (3.5-5.1) mmol/L Chloride 108 H (98-107) mmol/L Carbon Dioxide 26 (21-32) mmol/L BUN 37 H (6-23) mg/dl Creatinine 0.69 (0.6-1.2) mg/dl Glucose 70 (70-99(Fasting)) mg/dl Calcium 9.0 (8.6-10.3) mg/dl Intake and Output 12/18/24 12/19/24 12/19/24 22:59 06:59 14:59 Intake Total 200 / 2460 1160 / 2460 Balance 200 / 2460 1160 / 2460 Intake: IV 100 / 2200 1000 / 2200 Magnesium Sulfate / D5w 1 gm In 100 / 100 100 ml @ 50 mls/hr IV ONE ONE Rx#:[id number] Nss + 20Meq KCl 20 meq In 1,000 1000 / 2000 ml @ 100 mls/hr IV .Q10H NEELA Rx#:[id number] Oral 100 / 260 160 / 260 Other: Other Intake Source NPO # Unmeasured Voids 1 Weight 93.5 kg Weight Measurement Method Built in [facility] PG Care Time/CCT Total # of Minutes Spent Total Time Spent with Patient: Total time spent is greater than 50% in coordination of care (as documented) at patient's floor/unit and/or counseling patient: [place] [address] IN/OBS CONSULT LVL 5,80M Patient Type New Diagnoses Gastric out let obstruction K31.1 Abdominal wall hernia K43.9 Yeast infection of the skin B37.2 New onset atrial fibrillation I48.91 Hypokalemia E87.6 Dyslipidemia E78.5 Time Spent (min) 50
[2024-12-19 09:02] LABS: Hematocrit (blood only) 37.6 % (37.0-47.0); Hemoglobin 12.4 g/dl (12.0-16.0); Immature Granulocytes # (auto) 0.01 K/uL (0.01-0.20); Immature Granulocytes % (auto) 0.2 %; Mean Corpuscular Hemoglobin 32.5 pg (25.0-34.0); Mean Corpuscular Volume 98.7 fL (80.0-100.0); Platelet Count 125 K/uL (130-400); RDW Standard Deviation 52.4 fL (36.4-46.3); Red Blood Count 3.81 M/uL (4.20-5.40); White Blood Count 6.62 K/ul (4.8-10.8)
[2024-12-19 09:16] LABS: Anion Gap 8.0 (3-11); Blood Urea Nitrogen 37.0 mg/dl (6-23); Calcium 9.0 mg/dl (8.6-10.3); Carbon Dioxide 26.0 mmol/L (21-32); Chloride 108.0 mmol/L (98-107); Creatinine Clr Calc Pharmacy 69.3 ml/min; Glucose 70.0 mg/dl (70-99(Fasting)); Magnesium 2.1 mg/dl (1.7-2.4); Potassium 4.4 mmol/L (3.5-5.1); Sodium 142.0 mmol/L (136-145)
--- NOTE | 2024-12-19 09:18 | XCELERA ---
[id number]
--- NOTE | 2024-12-19 09:29 | Hospitalist Progress Note ---
Date of Service December 19, 2024 Assessment & Plan (1) Gastric out let obstruction: Plan: Patient is a 79year old F with a past medical history of hypothyroidism, prediabetes, dyslipidemia, breast cancer presenting with nausea, vomiting and abdominal pain x 2 days. Symptoms began with abdominal pain and nausea, that led to cyclic vomiting. Unable to tolerate foods x 2 days. Only minimal oral fluids tolerated. History of gall bladder removal with no complications following surgery. Reportedly, abdominal distention started about a month ago without current symptoms. Associated symptom of headache. Denies fever, chills, weakness, cognitive changes, vision/hearing changes, chest pain, SOB, swelling, difficulty breathing, urinary concerns, diarrhea, joint swelling/pain, skin rashes, lesions, bleeding, bruising. #Gastric outlet obstruction 2/2 supraumbilical hernia -CT abdomen/pelvis showed Large midline supraumbilical hernia contains portions of the stomach and transverse colon; Narrowing at the gastroduodenal junction from the hernia neck causes gastric outlet obstruction. -NG tube placed in ED -No BM. Not passing gas Plan -NG tube clamped today -Trial of CLD -Appreciate surgery input -Continue IVF for now. can stop if tolerating diet -Daily labs -Pain control #New onset afib -Started night 12/18 -CHADSVASC 3-4 (age, F, +/- HTN) -Rate controlled -TTE normal EF, DD grade II Plan -Appreciate cardio input regarding starting AC since this is provoked -Check TSH -Started on lopressor, continue for now -Cardiac monitoring #Thrombocytopenia -Plts decreased from 174--->127 in two days -She is not on heparin based products due to need for possible surgery -Unclear etiology, ?? consumptive -No s/s DIC -Plts stable today Plan -Follow plts closely -Should plts continue to decrease, will ask hematology to evaluate #Yeast infection -POA -On abdominal folds -Surgery started fluconazole #Hypokalemia -Hypomagnesemia -Replace and follow #Dyslipidemia -Hold statin while NPO #Hypothyroidism -Convert to IV synthroid while NPO and NG tube DVT Ppx: SCDs Code status: Full PCP: Dr. Rocio Fajardo Dispo: Admit I spent a total of 51 minutes coordinating, documenting, and providing care for this patient excluding time spent in the performance of separately billed services. This included personally reviewing all current laboratories and imaging studies, medical reconciliation, outpatient chart review and discussion with specialists (2) Hypokalemia: (3) Dyslipidemia: (4) Hypothyroidism: Admission and Anticipated Discharge Date Admission Date: December 16, 2024 Subjective Vikki is resting in bed, feeling better than when she initially came in. NG tube in place. pain resolved. passing gas New onset afib overnight. asymptomatic Physical Exam Physical Exam: Vitals and labs reviewed General: Well appearing, NAD HEENT: EOMI, PERRLA Neck: Supple Cardiac: RRR no rubs gallops or murmurs Lungs: CTA no rhonchi wheezing or rales Abd: NG tube. S mild distention. no BS. NT : No ruelas MSK: Full ROM. No obvious deformities Ext: No Edema cyanosis Skin: Warm, Dry Neuro: AOx3 No focal deficits. Psych: Normal Mood Results & Data Results & Data Vital Signs (Past 12 Hours) Vital Signs Temp Pulse Pulse Resp BP Pulse Ox O2 Del Method 12/19/24 07:40 36.8 C 60 18 164/97 H 92 Nasal Cannula 12/19/24 04:01 36.8 C 63 20 134/72 97 Nasal Cannula 12/19/24 03:59 36.8 C 63 20 134/72 97 Nasal Cannula 12/19/24 00:23 36.7 C 109 H 20 115/76 91 Nasal Cannula 12/18/24 21:45 124 H O2 Flow Rate 12/19/24 07:40 2 12/19/24 04:01 2 12/19/24 03:59 2 12/19/24 00:23 2 12/18/24 21:45 Laboratory Results Abnormal lab results 12/19/24 Range/Units 08:17 RBC 3.81 L (4.20-5.40) M/uL RDW Std Deviation 52.4 H (36.4-46.3) fL Plt Count 125 L (130-400) K/uL Lymph # (Auto) 0.80 L (1.20-3.40) K/uL [place] # (Auto) 0.84 H (0.11-0.59) K/uL Chlor[place] 108 H (98-107) mmol/L BUN 37 H (6-23) mg/dl BUN/Creatinine Ratio 53.6 H (10-20)
[2024-12-19 09:31] LABS: Thyroid Stimulating Hormone 0.645 uIu/ml (0.300-4.500)
[2024-12-19 09:37] LABS: Partial Thromboplastin Time 26 Seconds (21-31)
--- NOTE | 2024-12-19 10:21 | Surgery Progress Note ---
Date of Service December 19, 2024 Assessment & Plan (1) Yeast infection of the skin: (2) Abdominal wall hernia: (3) Gastric out let obstruction: Plan: 79F with ventral hernia containing stomach causing GOO resolved quickly with NGT decompression. New onset afib o/n, asymptomatic. Treating umbilical yeast infection with Nystatin and Diflucan added yesterday. Ambulate May have clears today Timing to surgery TBD at this point She is a high risk for recurrence with obesity and currently a mesh reinforcement would be contraindicated based on her active yeast infection Medical team managing her new onset A-fib and pt may need cardiology evaluation Admission and Anticipated Discharge Date Admission Date: December 16, 2024 Subjective I have seen and examined this pt this am. She is very thirsty and would like to drink. She denies N/V, abdominal pain and states she is passing flatus Physical Exam Constitutional: + obese; not ill appearing, not in distr ess and not diaphoretic Respiratory: normal respiratory effort; no respiratory distress, no labored breathing and does not use accessory muscles Gastrointestinal (Abdomen): obese abdomen, large pannus Nontender to palpation yeast infection of the umbilical skin is improving, gauze in place Decreased foul smell today compared to yesterday Results & Data Vital Signs (Past 12 Hours) Vital Signs Temp Pulse Resp BP Pulse Ox O2 Del Method O2 Flow Rate 12/19/24 07:40 36.8 C 60 18 164/97 H 92 Nasal Cannula 2 12/19/24 04:01 36.8 C 63 20 134/72 97 Nasal Cannula 2 12/19/24 03:59 36.8 C 63 20 134/72 97 Nasal Cannula 2 12/19/24 00:23 36.7 C 109 H 20 115/76 91 Nasal Cannula 2 PG Care Time/CCT Total # of Minutes Spent Total Time Spent with Patient: Total time spent is greater than 50% in coordination of care (as documented) at patient's floor/unit and/or counseling patient: Coding Level of Care Code 94828 SUB INP/OBS CARE 04/09MIN Diagnoses Yeast infection of the skin B37.2 Abdominal wall hernia K43.9 Gastric out let obstruction K31.1
--- NOTE | 2024-12-19 15:06 | Electrocardiogram Report ---
Test Reason : Blood Pressure : */* mmHG Vent. Rate : 127 BPM Atrial Rate : * BPM P-R Int : * ms QRS Dur : 162 ms QT Int : 356 ms P-R-T Axes : * -20 -2 degrees QTcB Int : 517 ms Atrial fibrillation with rapid ventricular response Right bundle branch block Abnormal ECG When compared with ECG of 16-Dec-2024 10:05, Atrial fibrillation has replaced Sinus rhythm Vent. rate has increased by 57 bpm Inverted T waves have replaced nonspecific T wave abnormality in Inferior leads Confirmed by Flavio Fontaine ([id number]) on 12/19/2024 3:05:56 PM Referred By: Rocio Fajardo Confirmed By: Flavio Fontaine
--- NOTE | 2024-12-19 15:15 | Electrocardiogram Report ---
Test Reason : Blood Pressure : */* mmHG Vent. Rate : 54 BPM Atrial Rate : 54 BPM P-R Int : 166 ms QRS Dur : 176 ms QT Int : 478 ms P-R-T Axes : 58 -4 27 degrees QTcB Int : 453 ms Sinus bradycardia Right bundle branch block Abnormal ECG When compared with ECG of 18-Dec-2024 20:29, (unconfirmed) Sinus rhythm has replaced Atrial fibrillation Vent. rate has decreased by 73 bpm Nonspecific T wave abnormality has replaced inverted T waves in Anterior leads Confirmed by Flavio Fnotaine ([id number]) on 12/19/2024 3:15:06 PM Referred By: Rocio Fajardo Confirmed By: Flavio Fontaine
[2024-12-20] MEDS: LEVOTHYROXINE SODIUM 88 MCG TABLET PO SCH (05:38)
[2024-12-20 06:13] LABS: Hematocrit (blood only) 35.4 % (37.0-47.0); Hemoglobin 11.9 g/dl (12.0-16.0); Immature Granulocytes # (auto) 0.02 K/uL (0.01-0.20); Immature Granulocytes % (auto) 0.4 %; Mean Corpuscular Hemoglobin 32.7 pg (25.0-34.0); Mean Corpuscular Volume 97.3 fL (80.0-100.0); Platelet Count 118 K/uL (130-400); RDW Standard Deviation 51.3 fL (36.4-46.3); Red Blood Count 3.64 M/uL (4.20-5.40); White Blood Count 5.44 K/ul (4.8-10.8)
[2024-12-20 06:31] LABS: Anion Gap 6.0 (3-11); Blood Urea Nitrogen 34.0 mg/dl (6-23); Calcium 8.5 mg/dl (8.6-10.3); Carbon Dioxide 26.0 mmol/L (21-32); Chloride 107.0 mmol/L (98-107); Creatinine Clr Calc Pharmacy 72.6 ml/min; Glucose 101.0 mg/dl (70-99(Fasting)); Magnesium 1.8 mg/dl (1.7-2.4); Potassium 4.1 mmol/L (3.5-5.1); Sodium 139.0 mmol/L (136-145)
--- NOTE | 2024-12-20 12:25 | Hospitalist Progress Note ---
Date of Service December 20, 2024 Assessment & Plan (1) Gastric out let obstruction: Plan: Patient is a 79year old F with a past medical history of hypothyroidism, prediabetes, dyslipidemia, breast cancer presenting with nausea, vomiting and abdominal pain x 2 days. Symptoms began with abdominal pain and nausea, that led to cyclic vomiting. Unable to tolerate foods x 2 days. Only minimal oral fluids tolerated. History of gall bladder removal with no complications following surgery. Reportedly, abdominal distention started about a month ago without current symptoms. Associated symptom of headache. Denies fever, chills, weakness, cognitive changes, vision/hearing changes, chest pain, SOB, swelling, difficulty breathing, urinary concerns, diarrhea, joint swelling/pain, skin rashes, lesions, bleeding, bruising. #Gastric outlet obstruction 2/2 supraumbilical hernia -CT abdomen/pelvis showed Large midline supraumbilical hernia contains portions of the stomach and transverse colon; Narrowing at the gastroduodenal junction from the hernia neck causes gastric outlet obstruction. -NG tube placed in ED -NG removed 12/19 and started on CLD -Bowel movement on 12/19 Plan -Tolerating CLD. advance as tolerated per surgery -Appreciate surgery input -Reached out to surgery [facility] to determine surgical plans -Daily labs -Pain control #New onset afib -Started night 12/18 -CHADSVASC 3-4 (age, F, +/- HTN) -Rate controlled -TTE normal EF, DD grade II -TSH normal Plan -Developed bradycardia on lopressor, now DC -Cardio recommending anticoagulation. awaiting surgical recommendations today before determining AC plan -Cardiac monitoring #Thrombocytopenia -Plts decreased from 174--->127 in two days -She is not on heparin based products due to need for possible surgery -Unclear etiology, ?? consumptive -No s/s DIC -Plts stable Plan -Follow plts closely #Yeast infection -POA -On abdominal folds -Surgery started fluconazole #Hypokalemia -Hypomagnesemia -Replace and follow #Dyslipidemia -Can resume statin #Hypothyroidism -Switch back to PO synthroid now that she is taking PO DVT Ppx: SCDs Code status: Full PCP: Dr. Rocio Fajardo Dispo: Admit I spent a total of 48 minutes coordinating, documenting, and providing care for this patient excluding time spent in the performance of separately billed services. This included personally reviewing all current laboratories and imaging studies, medical reconciliation, outpatient chart review and discussion with specialists (2) Hypokalemia: (3) Dyslipidemia: (4) Hypothyroidism: Admission and Anticipated Discharge Date Admission Date: December 16, 2024 Subjective Feeling well today. tolerating CLD. Patient denies F/C, CP, palpitations, SOB, dyspnea, abd pain, N/V/D Physical Exam Physical Exam: Vitals and labs reviewed General: Well appearing, NAD HEENT: EOMI, PERRLA Neck: Supple Cardiac: RRR no rubs gallops or murmurs Lungs: CTA no rhonchi wheezing or rales Abd: NG tube removed. NT ND Bs positive : No ruelas MSK: Full ROM. No obvious deformities Ext: No Edema cyanosis Skin: Warm, Dry Neuro: AOx3 No focal deficits. Psych: Normal Mood Results & Data Results & Data Vital Signs (Past 12 Hours) Vital Signs Temp Pulse Pulse Resp BP Pulse Ox O2 Del Method 12/20/24 09:35 Room Air 12/20/24 08:43 36.5 C 58 L 16 152/75 H 90 Room Air 12/20/24 07:03 51 L 12/20/24 03:39 36.6 C 56 L 18 151/79 H 95 Nasal Cannula O2 Flow Rate 12/20/24 09:35 12/20/24 08:43 12/20/24 07:03 12/20/24 03:39 2 Laboratory Results Abnormal lab results 12/20/24 Range/Units 05:38 RBC 3.64 L (4.20-5.40) M/uL Hgb 11.9 L (12.0-16.0) g/dl Hct 35.4 L (37.0-47.0) % RDW Std Deviation 51.3 H (36.4-46.3) fL Plt Count 118 L (130-400) K/uL Lymph # (Auto) 0.88 L (1.20-3.40) K/uL [place] # (Auto) 0.66 H (0.11-0.59) K/uL BUN 34 H (6-23) mg/dl BUN/Creatinine Ratio 51.5 H (10-20) Glucose 101 H (70-99(Fasting)) mg/dl Calcium 8.5 L (8.6-10.3) mg/dl
--- NOTE | 2024-12-20 12:54 | Surgery Progress Note ---
Date of Service December 20, 2024 Assessment & Plan (1) Abdominal wall hernia: Plan: pt w/ abdominal wall hernia that caused obstruction she is doing well since NGT removal and starting clears she reports + bowel function, both gas and BM denies pain/n/v + yeast infxn noted in umbilical region being managed w/ po and topical nystatin will advance to fulls and see how she fairs today would hold eliquis for now until we ensure she is able to tolerate a diet, maybe start tomorrow As above. Tolerating diet so far. Will advance slowly. No urgent surgical intervention indicated. The plan will be hopefully discharge follow-up with Dr. Kylah Boyce for elective repair in the near future. Admission and Anticipated Discharge Date Admission Date: December 16, 2024 Subjective Patient feeling well. No pain. No nausea/vomiting. Tolerating clears. reports + gas and BMs Physical Exam Physical Exam: awake/alert, no distress Gastrointestinal (Abdomen): Percussion/Palpation: abdomen soft; abdomen nontender + yeast infxn, in umbilical region, impr oving Results & Data Vital Signs (Past 12 Hours) Vital Signs Temp Pulse Pulse Resp BP Pulse Ox O2 Del Method 12/20/24 09:35 Room Air 12/20/24 08:43 97.7 F 58 L 16 152/75 H 90 Room Air 12/20/24 07:03 51 L 12/20/24 03:39 97.9 F 56 L 18 151/79 H 95 Nasal Cannula O2 Flow Rate 12/20/24 09:35 12/20/24 08:43 12/20/24 07:03 12/20/24 03:39 2 PG Care Time/CCT Total # of Minutes Spent Total Time Spent with Patient: Total time spent is greater than 50% in coordination of care (as documented) at patient's floor/unit and/or counseling patient: Coding Level of Care Code 78077 SUB INP/OBS CARE 04/09MIN Diagnoses Abdominal wall hernia K43.9
--- NOTE | 2024-12-20 16:16 | Cardiology Progress Note ---
Date of Service December 20, 2024 Assessment & Plan (1) Gastric out let obstruction: (2) Abdominal wall hernia: (3) Yeast infection of the skin: (4) New onset atrial fibrillation: (5) Hypokalemia: (6) Dyslipidemia: Plan Assessment: 79 year old female admitted with several days of nausea, vomiting, acute dehydration and hypokalemia in the setting of a gastric outset obstruction. Developed new onset Atrial fibrillation with RVR overnight. Cardiology has been consulted for further assessment and recommendations. New Onset Atrial Fibrillation with RVR -> NSR Gastric outset obstruction Electrolyte abnormality Preop cardiology evaluation Recommendations: correct and f/u electrolytes f/u renal function anticoagulation if no contraindications from surgery standpoint may start IV Heparin or Lovenox and hold prior to surgery and restart after kwok rgery to transition to Eliquis patient has greater then 4 METS activity with no symptoms of angina and no prior significant cardiac history patient is cleared as low to intermediate risk from cardiac standpoint for ventral hernia surgery continue metoprolol keeping HR between 60 and 100 BPM and systolic BP between 100-140 mmHg avoid fluid overload periop telemetry monitoring if no surgery planned start Eliquis f/u in cardiology clinic post discharge please recall as needed will sign off Admission and Anticipated Discharge Date Admission Date: December 16, 2024 Subjective Patient on exam is lying in bed in NAD; no c/o cp, sob, palpitations, dizziness, abdominal pain; patient passed gas and had BM Review of Systems Review of Systems: as per HPI Physical Exam Physical Exam: awake/alert, no distress Constitutional: awake, alert Neck: trachea midline, no thyromegaly Respiratory: normal respiratory effort, lungs clear to auscultation Cardiovascular: Rate/Rhythm: regular rate and regular rhythm Heart Sounds: normal S1 and normal S2 Gastrointestinal (Abdomen): Percussion/Palpation: abdomen soft; abdomen nontender + yeast infxn, in umbilical region, impr oving Neurologic: PERRL, EOMI, accommodation nl, no face palsy, no dysarthria Results & Data Vital Signs (Past 12 Hours) Vital Signs Temp Pulse Pulse Resp BP BP Pulse Ox 12/20/24 16:05 36.6 C 42 L 16 172/79 H 96 12/20/24 13:59 36.6 C 50 L 18 177/76 H 94 12/20/24 09:35 12/20/24 08:43 36.5 C 58 L 16 152/75 H 90 12/20/24 07:03 51 L O2 Del Method 12/20/24 16:05 Room Air 12/20/24 13:59 Room Air 12/20/24 09:35 Room Air 12/20/24 08:43 Room Air 12/20/24 07:03 Laboratory Results Laboratory Results - last 48 hr 12/19/24 12/20/24 08:17 05:38 WBC 6.62 5.44 RBC 3.81 L 3.64 L Hgb 12.4 11.9 L Hct 37.6 35.4 L MCV 98.7 97.3 MCH 32.5 32.7 MCHC 33.0 33.6 RDW Std Deviation 52.4 H 51.3 H RDW Coeff of Karine 14.5 14.2 Plt Count 125 L 118 L MPV 10.4 10.4 Immature Gran % (Auto) 0.2 0.4 Neut % (Auto) 74.3 69.4 Lymph % (Auto) 12.1 16.2 [place] % (Auto) 12.7 12.1 Eos % (Auto) 0.5 1.5 Baso % (Auto) 0.2 0.4 Neut # (Auto) 4.93 3.78 Lymph # (Auto) 0.80 L 0.88 L [place] # (Auto) 0.84 H 0.66 H Eos # (Auto) 0.03 0.08 Baso # (Auto) 0.01 0.02 Immature Gran # (Auto) 0.01 0.02 APTT 26 PTT Ratio 1.0 Sodium 142 139 Potassium 4.4 4.1 Chloride 108 H 107 Carbon Dioxide 26 26 Anion Gap 8 6 BUN 37 H 34 H Creatinine 0.69 0.66 Est Cr Clr Drug Dosing 69.3 72.6 eGFR 87.68 88.62 BUN/Creatinine Ratio 53.6 H 51.5 H Glucose 70 101 H Calcium 9.0 8.5 L Magnesium 2.1 1.8 TSH 0.645 Diagnostic Findings Laboratory Results WBC 5.44 K/ul (4.8-10.8) 12/20/24 05:38 RBC 3.64 M/uL (4.20-5.40) L 12/20/24 05:38 Hgb 11.9 g/dl (12.0-16.0) L 12/20/24 05:38 Hct 35.4 % (37.0-47.0) L 12/20/24 05:38 MCV 97.3 fL (80.0-100.0) 12/20/24 05:38 MCH 32.7 pg (25.0-34.0) 12/20/24 05:38 MCHC 33.6 g/dL (32.0-36.0) 12/20/24 05:38 RDW Std Deviation 51.3 fL (36.4-46.3) H 12/20/24 05:38 RDW Coeff of Karine 14.2 % (11.5-14.5) 12/20/24 05:38 Plt Count 118 K/uL (130-400) L 12/20/24 05:38 MPV 10.4 fL (9.4-12.4) 12/20/24 05:38 Immature Gran % (Auto) 0.4 % 12/20/24 05:38 Neut % (Auto) 69.4 % 12/20/24 05:38 Lymph % (Auto) 16.2 % 12/20/24 05:38 [place] % (Auto) 12.1 % 12/20/24 05:38 Eos % (Auto) 1.5 % 12/20/24 05:38 Baso % (Auto) 0.4 % 12/20/24 05:38 Neut # (Auto) 3.78 K/uL (1.40-6.50) 12/20/24 05:38 Lymph # (Auto) 0.88 K/uL (1.20-3.40) L 12/20/24 05:38 [place] # (Auto) 0.66 K/uL (0.11-0.59) H 12/20/24 05:38 Eos # (Auto) 0.08 K/uL (0.00-0.50) 12/20/24 05:38 Baso # (Auto) 0.02 K/uL (0.00-0.20) 12/20/24 05:38 Immature Gran # (Auto) 0.02 K/uL (0.01-0.20) 12/20/24 05:38 APTT 26 Seconds (21-31) 12/19/24 08:17 PTT Ratio 1.0 12/19/24 08:17 Sodium 139 mmol/L (136-145) 12/20/24 05:38 Potassium 4.1 mmol/L (3.5-5.1) 12/20/24 05:38 Chloride 107 mmol/L (98-107) 12/20/24 05:38 Carbon Dioxide 26 mmol/L (21-32) 12/20/24 05:38 Anion Gap 6 (3-11) 12/20/24 05:38 BUN 34 mg/dl (6-23) H 12/20/24 05:38 Creatinine 0.66 mg/dl (0.6-1.2) 12/20/24 05:38 Est Cr Clr Drug Dosing 72.6 ml/min 12/20/24 05:38 eGFR 88.62 12/20/24 05:38 BUN/Creatinine Ratio 51.5 (10-20) H 12/20/24 05:38 Glucose 101 mg/dl (70-99(Fasting)) H 12/20/24 05:38 Lactate 1.5 mmol/L (0.4-2.0) 12/16/24 12:21 Calcium 8.5 mg/dl (8.6-10.3) L 12/20/24 05:38 Phosphorus 3.3 mg/dl (2.5-4.9) 12/17/24 06:22 Magnesium 1.8 mg/dl (1.7-2.4) 12/20/24 05:38 Total Bilirubin 0.8 mg/dl (0.2-1.0) 12/16/24 09:50 AST 28 U/L (13-39) 12/16/24 09:50 ALT 19 U/L (7-52) 12/16/24 09:50 Alkaline Phosphatase 102 U/L (34-104) 12/16/24 09:50 Troponin I High Sens 11.0 pg/ml (0-14) 12/16/24 09:50 Total Protein 8.5 gm/dl (6.0-8.3) H 12/16/24 09:50 Albumin 4.2 gm/dl (3.4-5.0) 12/16/24 09:50 Globulin 4.3 gm/dl (2.5-4.0) H 12/16/24 09:50 Albumin/Globulin Ratio 1.0 (0.9-2) 12/16/24 09:50 Lipase 122 U/L (11-82) H 12/16/24 09:50 TSH 0.645 uIu/ml (0.300-4.500) 12/19/24 08:17 Urine Color Yellow 12/17/24 08:25 Urine Appearance Clear (Clear) 12/17/24 08:25 Urine pH 6.5 (4.5-7.5) 12/17/24 08:25 Ur Specific [place] > 1.045 (1.000-1.030) H 12/17/24 08:25 Urine Protein 1+ (Negative) H 12/17/24 08:25 Urine Glucose (UA) Negative (Negative) 12/17/24 08: Urine Ketones 2+ (Negative) H 12/17/24 08: Urine Blood Negative (Negative) 12/17/24 08:25 Urine Nitrite Negative (Negative) 12/17/24 08:25 Urine Bilirubin Negative (Negative) 12/17/24 08:25 Urine Urobilinogen Negative (Negative) 12/17/24 08:25 Ur Leukocyte Esterase Trace (Negative) H 12/17/24 08:25 Urine WBC (Auto) 0-5 /hpf (0-5) 12/17/24 08:25 Urine RBC (Auto) 3-5 /hpf (0-2) H 12/17/24 08:25 U Hyaline Cast (Auto) 0-2 /lpf (0-2) 12/17/24 08:25 U Epithel Cells (Auto) 3-5 /hpf (0-2) H 12/17/24 08:25 Urine Bacteria (Auto) 2+ (None Seen) H 12/17/24 08:25 Urine Comment 12/17/24 08:25 Impressions Abdomen/Pelvis CT 12/16/24 09:[address] WITH IV CONTRAST CT DOSE: 1302.75 mGy.cm HISTORY: Acute generalized abdominal pain with nausea and vomiting Abd pain, N/V TECHNIQUE: Multiaxial CT images of the abdomen and pelvis were performed following the IV administration of 94 cc of Optiray, A dose lowering technique was utilized adhering to the principles of ALARA. COMPARISON STUDY: None. FINDINGS: Cardiomegaly with coronary artery calcifications. Mild bibasilar atelectasis. No pneumatosis or pneumoperitoneum. Unremarkable spleen, moderately trophic pancreas and adrenal glands. Cholecystectomy with likely postsurgical biliary ductal dilation. Unremarkable liver with patency of the hepatic and portal veins. Kidneys are within normal limits. Unremarkable urinary bladder. Heterogeneous uterus. Extensive atherosclerosis of the aorta and branch vessels. Infrarenal abdominal aortic aneurysm measures 3.9 x 3.1 cm. No lymphadenopathy. There is wall thickening of the distal esophagus and gastroesophageal junction on image 72 series 3. Distended air and fluid-filled stomach with narrowing/obstruction level of the distal stomach/gastroduodenal junction, image 160 series 3 secondary to narrowing at the neck of a large midline supraumbilical hernia which demonstrates opening of 4.6 x 5.0 cm and contains stomach, mesenteric inflammatory stranding, ascites and transverse colon. The colon is also narrowed without large bowel obstruction at this time. Colonic diverticulosis without acute diverticulitis. Surgical clips within the right lower quadrant abdomen suggestive of prior appendectomy. No acute fracture. IMPRESSION: 1. Large midline supraumbilical hernia contains portions of the stomach and transverse colon. 2. Narrowing at the gastroduodenal junction from the hernia neck causes gastric outlet obstruction. Surgical consultation is needed. 3. Additional nonspecific wall thickening of the distal stomach and gastroesophageal junction. Attention at follow-up recommended. 4. Incidental findings as above include aneurysmal dilation of the infrarenal abdominal aorta measuring 3.9 cm. ACT 112: Negative or not required by law. The above report was generated using voice recognition software. It may contain grammatical, syntax or spelling errors. Electronically signed by: Sergei Benson M.D. 12/16/2024 11:27 AM Chest X-Ray 12/16/24 13:31 XR chest 1V portable CLINICAL HISTORY: NG tube COMPARISON STUDY: 12/16/2024 FINDINGS: Nasogastric tube tip is in the mid body of the stomach with the sidehole just beyond the GE junction. There is stable mild cardiomegaly without pulmonary vascular congestion. No consolidation or pleural effusion. No pneumothorax. IMPRESSION: Nasogastric tube as described. ACT 112: Negative or not required by law. Electronically signed by: Biju García M.D. 12/16/2024 2:21 PM 12/19/24 ECHO Interpretation Summary Left ventricular systolic function is normal. Left Ventricular Ejection Fraction = 55-60%. Diastolic dysfunction, Grade II (pseudonormalization pattern). There is mild mitral regurgitation. There is mild tricuspid regurgitation. Medications Administered Home Medications Medication Instructions Recorded Confirmed Last Taken levothyroxine 88 mcg tablet 88 mcg PO DAILY 12/16/24 12/16/24 Unknown (Synthroid) simvastatin 20 mg tablet 20 mg PO DAILY 12/16/24 12/16/24 Unknown Active Medications Generic Name Dose Route Start Last Admin Trade Name Attila PRN Reason Stop Dose Admin Pantoprazole Sodium 40 mg in 10 mls @ 5 mls/min 12/16/24 21:00 12/20/24 09:35 Protonix IV 01/15/25 20:59 5 mls/min BID NEELA Administration Levothyroxine Sodium 88 mcg 12/20/24 06:30 12/20/24 05:38 Levothyroxine Sodium 88 Mcg Tablet PO 01/19/25 06:29 88 mcg DAILYBB NEELA Administration Nystatin 1 appln 12/17/24 11:30 12/20/24 09:36 Nystatin Oint 15 Gm Tube EXT 01/16/25 11:29 1 appln DAILY NEELA Administration Simvastatin 20 mg 12/17/24 21:00 12/19/24 19:50 Simvastatin 20 Mg Tab PO 01/16/25 20:59 20 mg DAILY@2100 NEELA Administration PG Care Time/CCT Total # of Minutes Spent Total Time Spent with Patient: Total time spent is greater than 50% in coordination of care (as documented) at patient's floor/unit and/or counseling patient: Coding Level of Care Code 78161 SUB INP/OBS CARE 3/50MIN Diagnoses Gastric out let obstruction K31.1 Abdominal wall hernia K43.9 Yeast infection of the skin B37.2 New onset atrial fibrillation I48.91 Hypokalemia E87.6 Dyslipidemia E78.5
[2024-12-20 19:45] VITALS: RESP 18
[2024-12-21 07:39] VITALS: PULSE 50; TEMP 97.9; O2SAT 93
[2024-12-21 07:45] LABS: Hematocrit (blood only) 34.2 % (37.0-47.0); Hemoglobin 12.2 g/dl (12.0-16.0); Immature Granulocytes # (auto) 0.02 K/uL (0.01-0.20); Immature Granulocytes % (auto) 0.4 %; Mean Corpuscular Hemoglobin 33.6 pg (25.0-34.0); Mean Corpuscular Volume 94.2 fL (80.0-100.0); Platelet Count 132 K/uL (130-400); RDW Standard Deviation 46.5 fL (36.4-46.3); Red Blood Count 3.63 M/uL (4.20-5.40); White Blood Count 4.97 K/ul (4.8-10.8)
[2024-12-21 08:00] LABS: Anion Gap 5.0 (3-11); Blood Urea Nitrogen 23.0 mg/dl (6-23); Calcium 8.5 mg/dl (8.6-10.3); Carbon Dioxide 27.0 mmol/L (21-32); Chloride 105.0 mmol/L (98-107); Creatinine Clr Calc Pharmacy 74.0 ml/min; Glucose 101.0 mg/dl (70-99(Fasting)); Magnesium 1.6 mg/dl (1.7-2.4); Potassium 3.9 mmol/L (3.5-5.1); Sodium 137.0 mmol/L (136-145)
--- NOTE | 2024-12-21 09:23 | Surgery Progress Note ---
Date of Service December 21, 2024 Assessment & Plan (1) Abdominal wall hernia: Plan: pt w/ abdominal wall hernia that caused obstruction she has been tolerating fulls and having + bowel function denies pain/n/v + yeast infxn noted in umbilical region being managed w/ po and topical nystatin will advance to low fiber today, will see if dietary can come by for education on diet if tolerates diet okay to start her on eliquis as per cardiology if tolerates diet okay for d/c from our end will get her an appt in the clinic to follow up with dr. yanes to discuss elective repair of hernia we will follow peripherally at this point but please call with any q uestions/concerns (2) Yeast infection of the skin: Admission and Anticipated Discharge Date Admission Date: December 16, 2024 Subjective Patient feeling well. No pain, nausea/vomiting. + bowel function. Tolerating fulls Physical Exam Physical Exam: awake/alert, no distress Gastrointestinal (Abdomen): Non tender. palpable ventral hernia Results & Data Vital Signs (Past 12 Hours) Vital Signs Temp Pulse Pulse Resp BP BP Pulse Ox 12/21/24 07:38 97.9 F 50 L 18 132/71 93 12/21/24 07:32 58 L 12/21/24 01:13 98.4 F 72 18 138/69 91 12/20/24 23:09 97.9 F 53 L 18 157/76 H 93 12/20/24 21:45 56 L 12/20/24 21:26 O2 Del Method 12/21/24 07:38 Room Air 12/21/24 07:32 12/21/24 01:13 Room Air 12/20/24 23:09 Room Air 12/20/24 21:45 12/20/24 21:26 Room Air PG Care Time/CCT Total # of Minutes Spent Total Time Spent with Patient: Total time spent is greater than 50% in coordination of care (as documented) at patient's floor/unit and/or counseling patient: Coding Level of Care Code 84780 SUB INP/OBS CARE 04/09MIN Diagnoses Abdominal wall hernia K43.9 Yeast infection of the skin B37.2
[2024-12-21] MEDS: APIXABAN 5 MG TABLET PO SCH (10:31)
[2024-12-21 10:39] VITALS: BP 138/69
--- NOTE | 2024-12-21 11:43 | Discharge Summary ---
Date of Service December 21, 2024 Admission HPI Per Admitting Provider Patient is a 79year old F with a past medical history of hypothyroidism, prediabetes, dyslipidemia, breast cancer presenting with nausea, vomiting and abdominal pain x 2 days. Symptoms began with abdominal pain and nausea, that led to cyclic vomiting. Unable to tolerate foods x 2 days. Only minimal oral fluids tolerated. History of gall bladder removal with no complications following surgery. Reportedly, abdominal distention started about a month ago without current symptoms. Associated symptom of headache. Denies fever, chills, weakness, cognitive changes, vision/hearing changes, chest pain, SOB, swelling, difficulty breathing, urinary concerns, diarrhea, joint swelling/pain, skin rashes, lesions, bleeding, bruising. In the emergency department, patient was hemodynamically stable with no leukocytosis or evidence of sepsis. Lipase elevated [address] abdomen/pelvis showed Large midline supraumbilical hernia contains portions of the stomach and transverse colon; Narrowing at the gastroduodenal junction from the hernia neck causes gastric outlet obstruction. Patient reporting nausea in the ED w/o vomiting. PPI and Zofran given x 1 with some relief. Surgery consulted in ED with plan for conservative measures via NGT gastric decompression, NPO, fluids for now. Surgery attempted manual reduction at bedside. Possible surgical intervention needed if conservative measures unsuccessful. Hypokalemia noted on lab workup with K+ 3.1. EKG showing NSR with 70 bpm, Qtc 516. K Parvez x 4 ordered and started in ED. Chest Xray without acute findings. History obtained primarily from the patient and via hospitalization record. The patient's family was at the bedside and assisted with history of present illness. External chart review obtained from [facility]. Admission Exam Per Admitting Provider VITALS: Reviewed. WEIGHT/BMI reviewed. GEN: Healthy appearing, well-developed, NAD. PSYCH: Good Judgment. AOx3. Normal memory, mood, and affect. HEENT -Head: NC/AT; -Eyes: PERRL, EOMI. No discharge or redness; -Ears: External ears are normal. -Nose: Normal nares. -Mouth and throat: Dry mucous membranes. Normal gums, mucosa, palate,. Good dentition. NECK: Supple, with no masses. CV: RRR, no m/r/g. BLE nonpitting edema LUNGS: CTAB, no w/r/c. ABD: Protuberant, tender, hypoactive bowel sounds : N/A SKIN: Warm, well perfused. No skin rashes or abnormal lesions. MSK: No deformities, Normal gait. EXT: No clubbing, cyanosis, or edema. NEURO: CN II-XII grossly intact. No focal deficits. Principal Diagnosis Abdominal wall hernia: New Onset Atrial Fibrillation with RVR Discharge Exam Constitutional: WD/WN, vitals as above, NAD, sitting up in bed, pleasant, conversing easily Respiratory: normal respiratory effort, lungs clear to auscultation, no wheeze, rales, rhonchi. Normal insp/exp effort, no accessory muscle use Cardiovascular: RRR, no murmur, no edema Vessels: no JVD or carotid bruit Chest: normal inspection of chest Abdomen: Soft, nontender. Musculoskeletal: no cyanosis or clubbing, extremities motor strength 5/5 Skin: no rashes, warm and dry normal turgor Neurologic: PERRL, EOMI, accommodation nl, no face palsy, no dysarthria CN's II- XI intact bilaterally and moves all extremities Psychiatric: A+Ox3, euthymic affect Discharge Data Allergies Allergy/AdvReac Type Severity Reaction Status Date / Time No Known Allergies Allergy Unverified 08/11/17 09:36 Consultations 12/16/24 12:10 ED Decision to Admit Stat 12/16/24 15:25 Consult General Surgery Routine 12/18/24 20:41 Consult Cardiology Routine Ordered Studies 12/16/24 09:38 CT abd pelvis IV con only Stat Hospital Course (1) Gastric out let obstruction: (2) Hypokalemia: (3) Dyslipidemia: (4) Hypothyroidism: Plan Patient is a 79year old F with a past medical history of hypothyroidism, prediabetes, dyslipidemia, breast cancer presenting with nausea, vomiting and abdominal pain x 2 days. Symptoms began with abdominal pain and nausea, that led to cyclic vomiting. Unable to tolerate foods x 2 days. Gastric outlet obstruction 2/2 supraumbilical hernia -CT abdomen/pelvis showed Large midline supraumbilical hernia contains portions of the stomach and transverse colon; Narrowing at the gastroduodenal junction from the hernia neck causes gastric outlet obstruction. -NG tube placed in ED -NG removed 12/19 and started on CLD -Bowel movement on 12/19 Surgery was consulted during the hospitalization; patient was able to tolerate low fiber diet without any issues. General surgery recommended outpatient follow-up for definitive management of the hernia. Patient was given instruction regarding low fiber diet. New onset atrial fibrillation with RVR Patient developed new onset A-fib with RVR on 12/18; he spontaneously converted to sinus rhythm. Cardiology was consulted; recommended anticoagulation. Patient was discharged on Eliquis 5 mg twice daily; her heart rate was under control at the time of the discharge. Please note the above document was generated using voice recognition software. It may contain grammatical, syntax or spelling errors. Any formal questions or concerns about the content, text or information contained within the body of this dictation should be directly addressed to the provider for clarification Total Time Total Time Spent Total Time Spent (In Minutes): 45 Total Time Includes: Examination of the Patient, Discharge Planning, Medication Reconciliation, Communication With Other Providers and Other Discharge Plan Discharge Items Patient Disposition: Home - Self-Care Reason For Visit: HERNIA Discharge Diagnosis: Atrial Fibrillation with RVR Gastric outset obstruction Condition on Discharge: Fair Activity: Resume your previous activity Non-emergency contact: Primary Care Provider Call non-emergency contact if: you have any medication questions and your sy mptoms worsen Follow-up/Referrals: Rocio Fajardo MD [Primary Care Provider] - Nirali Pastor DO [Physician] - 12/27/24 9:50 am Diet: Regular Addtl Attending Provider Instructions: You were admitted to the hospital with hernia that resulted in obstruction causing nausea and vomiting. You were evaluated by general surgery; please f ollow a low fiber diet provided in the instructions. Please follow-up with surgery team; they will make you an appointment for follow-up for management of the hernia. You are found to have irregular heart rhythm called atrial fibrillation. You are prescribed blood thinner Eliquis to be taken twice a day. An appointment will be set up with your primary care doctor for follow-up Pending Studies at Discharge: No Stand-Alone Forms: [employer], Smoking Cessation Medications and DC Order Prescriptions: New nystatin 100,000 unit/gram Ointment 1 applic EXT DAILY 7 Days Qty: 15 0RF pantoprazole 40 mg Tablet,Delayed Release (Dr/Ec) 40 mg PO DAILY 21 Days Qty: 21 0RF Eliquis 5 mg tablet 5 mg PO BID Qty: 60 0RF Continued levothyroxine [Synthroid] 88 mcg tablet 88 mcg PO DAILY simvastatin 20 mg tablet 20 mg PO DAILY Discharge Orders: Discharge Order (Routine); Ordered 12/21/24 Ordered By: Janak Jay Admission Data Admit Date/Time: 12/16/24 12:41 Attending Provider: Janak Jay Admit Provider: Piero Jacobo Primary Care Provider: Rocio Fajardo Other Providers: Nirali Pastor; Piero Jacobo; Mercy Sharma; Kev Delvalle; Jameson Angel; Robin Grullon; Nba Soriano; Hank Burroughs; Nadia Heredia; Marsha Collins; Chanel Barrera; Talya Gonzalez Ashley M.; Jacques Cota; Cheikh Angeal; Natalie Edward; Ariane Miles; Myah Luis; Bela Anderson; Linus Thompson; Latrice Tobias; Trupti Campbell; Michael Fox; Ted Angel Other Interventions: Discharge Summary Assessment (RN) Last Done: 12/21/24 10:37
== END 2024-12-21 13:10 | disposition home or self-care (01) | DRG 381 ==
LOC: ED 09:18 → SUATTDRO 12:41 → 2W 12:41